=== PATIENT | male | born 1950 | race Hispanic/Latino ===

== ENCOUNTER 2018-08-03 15:44 | Observation (INO) | payer OTHER ==
[2018-08-03 17:24] LABS: Absolute Lymphocytes (CBC) 2.3 K/uL (0.7-4.9); Absolute Monocytes 0.6 K/uL (0.1-1.3); Absolute Neutrophil 6.5 K/uL (1.8-8.0); Basophils % 0.6 % (0-1.3); Eosinophils % 2.2 % (0-4.4); Hematocrit 44.8 % (39.6-49.0); Lymphocytes % 23.7 % (15.3-44.8); MPV 8.8 fL (7.6-11.3); Monocytes % 6.5 % (3.3-12.3)
[2018-08-03 17:34] LABS: Albumin 3.9 g/dL (3.4-5.0); Bilirubin Total 1.5 mg/dL (0.2-1.0); Potassium 3.7 mmol/L (3.5-5.1); Protein, Total 7.8 g/dL (6.4-8.2)
[2018-08-03] MEDS: METRONIDAZOLE 500mg IVPB 500 MG/100 ML BAG IV SCH ×2 (17:39→23:47)
[2018-08-03] MEDS: NACHLORIDE 0.45% 1,000 ML IV SCH (17:40)
[2018-08-03 17:58] VITALS: BMI 33.5
--- NOTE | 2018-08-03 19:29 | RAD REPORT ---
EXAM DESCRIPTION: CTAbdomen Pelvis W Contrast - 08/03/2018 7:19 pm CLINICAL HISTORY: Abdominal pain. acute diverticulities COMPARISON: No comparisons TECHNIQUE: Biphasic CT imaging of the abdomen and pelvis was performed with 100 ml non-ionic IV cont rast. All CT scans are performed using dose optimization technique as appropriate and may include automated exposure control or mA/KV adjustment according to patient size. FINDINGS: The lung bases are clear. The liver, spleen, pancreas, adrenal glands and kidneys are within normal limits. No bowel obstruction, free air, free fluid or abscess. 32 x 12 mm area of epiploic appendagitis is no paulette along the left flank/ left lower quadrant. The appendix is normal. No evidence of significant ly mphadenopathy. No suspicious bony findings. Mild prostatomegaly is present. IMPRESSION: Left lower quadrant epiploic appendagitis.
[2018-08-03] MEDS: CIPROFLOXACIN 400 MG/200 ML IVPB IV SCH (22:08)
[2018-08-03] MEDS ORDERED: ZOLPIDEM TARTRATE 5 MG TABLET PO PRN (22:52)
[2018-08-03 23:09] LABS: Urine Appearance CLEAR; Urine Bilirubin NEGATIVE (NEG); Urine Blood 2+ (NEG); Urine Color YELLOW; Urine Glucose NEGATIVE (NEG); Urine Protein NEGATIVE (NEG); Urine Specific Gravity >=1.030 (1.005-1.030); Urine pH 5.5 (5.0-7.0)
[2018-08-03 23:20] LABS: Urine Microscopic Reflex ORDER UMIC
[2018-08-03 23:38] LABS: Urine Bacteria <20 /HPF (NONE SEEN); Urine Culture Reflex Order NOT NEEDED
[2018-08-03] MEDS: MORPHINE 4 MG/ML SYR IV PRN (23:45)
[2018-08-04] MEDS: NACHLORIDE 0.45% 1,000 ML IV SCH ×2 (00:40→07:20)
[2018-08-04] MEDS: METRONIDAZOLE 500mg IVPB 500 MG/100 ML BAG IV SCH ×3 (05:48→18:03)
[2018-08-04] MEDS: CIPROFLOXACIN 400 MG/200 ML IVPB IV SCH ×2 (08:21→21:00)
[2018-08-04] MEDS: ASPIRIN EC 325 MG TABLET PO SCH (08:41)
[2018-08-04] MEDS: GEMFIBROZIL 600 MG TAB PO SCH (08:41)
[2018-08-04] MEDS: MORPHINE 4 MG/ML SYR IV PRN (14:48)
--- NOTE | 2018-08-04 19:36 | HP ---
Date of Admission: 08/03/2018 Chief Complaint: Left lower quadrant pain. History Of Present Illness: A 68-year-old male was seen in the office with left flank pain. He had outpatient CAT scan done that was suggestive of diverticulitis. The patient was given oral Cipro. H owever, he continued to have pain. At this point, he was brought to the office again with possibilit y of diverticulitis, not responding. The patient was admitted. Subsequently, the patient had a CAT scan with contrast this time, which showed evidence of epiploic appendagitis. Past Medical History: Positive for hyperlipidemia. Family History: History of hyperlipidemia and diabetes present. Personal History: Nonsmoker. Allergies: FLEXERIL. Home Medicines: Lipitor and Tricor. Review of Systems: The patient denied any chest pain or shortness of breath. Physical Examination: General: Revealed a 68-year-old obese male, in moderate pain. Vital Signs: Afebrile. HEENT: Otherwise negative. Neck: Supple. JVD negative. Chest: Clear. Heart: Regular. Abdomen: Tender left lower quadrant with normal bowel sounds. Extremities: No edema. Laboratory Data: White count normal. Assessment: 1.CT scan, evidence of epiploic appendagitis. 2.Hyperlipidemia. Plan: Surgical consultation has been requested and pending bed, patient will be given regular diet a nd if sap portal consultant recommends discharge with pain medication, this will be done. GRIS Voice ID: [id number]
[2018-08-04] MEDS ORDERED: ATORVASTATIN 10 MG TAB PO SCH (21:00)
[2018-08-05] MEDS: METRONIDAZOLE 500mg IVPB 500 MG/100 ML BAG IV SCH ×4 (00:08→17:07)
[2018-08-05] MEDS: ASPIRIN EC 325 MG TABLET PO SCH (09:01)
[2018-08-05] MEDS: GEMFIBROZIL 600 MG TAB PO SCH (09:01)
[2018-08-05] MEDS: CIPROFLOXACIN 400 MG/200 ML IVPB IV SCH (09:01)
[2018-08-05 10:36] VITALS: O2SAT 96
[2018-08-05 17:21] VITALS: BP 150/70; TEMP 97.9
--- NOTE | 2018-08-05 19:10 | CON ---
Date of Consultation: 08/04/2018 Reason For Service: Left lower quadrant abdominal pain. History Of Present Illness: This is the case of a 68-year-old patient comes to us complaining of lef t lower quadrant tenderness. The CAT scan was found to apparently have the diverticulitis, so patirene panda was admitted to the hospital with a surgical consult. The patient apparently was treated before fo r left lower quadrant tenderness, possible diverticulitis, since it was not getting better he decided to come to the ER. He denies any trauma, dysuria, hematochezia, melena. Denies any recent travelli ng out of the country. Denies any family member sick at home. The patient says his colonoscopy have to be more than 6 years ago, he does not remember the details, although he believed it was negative. The patient advised to discuss with the betting clerks his new colonoscopy timing. Review of Systems: Ten points otherwise unremarkable. Past Medical History: Hyperlipidemia. Family History: Diabetes. Social History: He does not smoke. He does not drink alcohol. Allergies: FLEXERIL. Medications: Lipitor and TriCor. Physical Examination: General: The patient is awake and alert. No distress. HEENT: Pupils are equal and reactive, anicteric. Neck: Supple. Chest: Clear. Abdomen: Mild left lower quadrant tenderness with no guarding or rebound. No peritoneal signs. Rectal: Deferred. Extremities: Good capillary refill. Laboratory Data: Blood work shows WBC count of 9.7, hemoglobin of 15.5. Potassium 3.7. CAT scan of abdomen and pelvis, interpreted by Dr. Smith as left lower quadrant epiploic appendagitis. Assessment: This is a 68-year-old patient with left lower quadrant tenderness and CT scan was interp reted as epiploic appendagitis, there is still possibility of diverticulitis, for that reason patient was on antibiotics. I encouraged the patient when he get better and he gets discharged home to [facility] with the betting clerks to do a colonoscopy whenever is appropriate to rule out neoplastic dis ease or diverticular disease. From the surgical standpoint no surgical plans at this moment. ADAM/ALAN Voice ID: [id number] Report ID: [id number]
== END 2018-08-05 18:53 | disposition home or self-care (01) ==
LOC: INTOOBSV 16:05 → 4TH 16:05
PROVIDERS: ADMIT Internal Medicine; ATTEND Internal Medicine
DX: K63.89 Other specified diseases of intestine (principal); E78.5 Hyperlipidemia, unspecified
CPT/HCPCS: 36415; 74177; 80053; 85025; 87040 ×2; G0378; G0379; J0744 ×4; Q9967; 81003; 81015

== ENCOUNTER 2018-08-31 10:38 | Observation (INO) | payer OTHER ==
[2018-08-31 11:56] VITALS: BMI 33.8
[2018-08-31 12:12] LABS: Absolute Lymphocytes (CBC) 2.1 K/uL (0.7-4.9); Absolute Monocytes 0.5 K/uL (0.1-1.3); Absolute Neutrophil 4.9 K/uL (1.8-8.0); Basophils % 0.6 % (0-1.3); Eosinophils % 1.1 % (0-4.4); Hematocrit 44.8 % (39.6-49.0); Lymphocytes % 27.8 % (15.3-44.8); MPV 8.5 fL (7.6-11.3); Monocytes % 6.6 % (3.3-12.3); RBC Red Blood Cell Count 5.05 M/uL (4.33-5.43)
[2018-08-31 12:50] LABS: ALT/SGPT 30 U/L (12-78); AST/SGOT 18 U/L (15-37); Albumin 3.8 g/dL (3.4-5.0); Alkaline Phosphatase 89 U/L (45-117); BUN Blood Urea Nitrogen 18 mg/dL (7-18); Bicarbonate 26 mmol/L (21-32); Bilirubin Total 1.2 mg/dL (0.2-1.0); Glucose Level 97 mg/dL (74-106); Potassium 3.7 mmol/L (3.5-5.1); Protein, Total 7.6 g/dL (6.4-8.2); Sodium Level 139 mmol/L (136-145); Troponin I < 0.02 ng/mL (0.0-0.045)
[2018-08-31] MEDS: TRAMADOL HCL 50 MG TAB PO PRN ×2 (13:55→21:17)
--- NOTE | 2018-08-31 14:00 | EKG ---
Test Date: 2018-08-31 Test Time: 11:41:57 Grounds Caretaker: VELIA MEASUREMENT RESULTS: Intervals: Rate: 53 NC: 176 QRSD: 94 QT: 434 QTc: 407 [place]: P: 54 NC: 176 QRS: 68 T: 57 INTERPRETIVE STATEMENTS: Sinus bradycardia Nonspecific T wave abnormality Abnormal ECG Compared to ECG 12/13/2016 06:41:06 T-wave abnormality now present Electronically Signed On 08-31-18 14:00:01 MANAGER AGRICULTURE by Damon Jerry
--- NOTE | 2018-08-31 14:12 | ECHO ---
HEIGHT: 5 ft 11.5 in WEIGHT: 246 lb 0 oz DATE OF STUDY: 08/31/[address]: Isaac Gonzalez MD 2-DIMENSIONAL: YES M.MODE: YES DOPPLER: YES COLOR FLOW: YES TDS: NO PORTABLE: NO DEFINITY: NO BUBBLE STUDY: NO DIAGNOSIS: CHEST PAIN CARDIAC HISTORY: CATHERIZATION: NO SURGERY: NO PROSTHETIC VALVE: NO PACEMAKER: NO MEASUREMENTS (cm) DIASTOLIC (NORMALS) SYSTOLIC (NORMALS) IVSd 1.2 (0.6-1.2) LA Diam 3.8 (1.9-4.0) LVEF 65% LVIDd 4.2 (3.5-5.7) LVIDs 2.7 (2.0-3.5) %FS 36% LVPWd 1.2 (0.6-1.2) Ao Diam 3.0 (2.0-3.7) 2 DIMENSIONAL ASSESSMENT: RIGHT ATRIUM: NORMAL LEFT ATRIUM: NORMAL RIGHT VENTRICLE: NORMAL LEFT VENTRICLE: NORMAL TRICUSPID VALVE: NORMAL MITRAL VALVE: NORMAL PULMONIC VALVE: NORMAL AORTIC VALVE: NORMAL PERICARDIAL EFFUSION: NONE AORTIC ROOT: NORMAL LEFT VENTRICULAR WALL MOTION: NORMAL DOPPLER/COLOR FLOW: MILD TRICUSPID REGURGITATION. NORMAL RIGHT VENTRICULAR SYSTOLIC PRESSURE. COMMENTS: NORMAL 2D ECHOCARDIOGRAM. MILD TRICUSPID REGURGITATION. TECHNOLOGIST: Pat KOVACS
[2018-08-31 14:32] LABS: Urine Appearance CLEAR; Urine Bilirubin NEGATIVE (NEG); Urine Blood NEGATIVE (NEG); Urine Color YELLOW; Urine Glucose NEGATIVE (NEG); Urine Protein NEGATIVE (NEG); Urine Urobilinogen 0.2 mg/dL (0.2-1.0)
--- NOTE | 2018-08-31 14:48 | RAD REPORT ---
EXAM DESCRIPTION: CT - Thorax W/ Con CLINICAL HISTORY: Chest pain Chest Pain COMPARISON: Chest W Obliques dated 08/30/2018; Chest Pa And Lat (2 Views) dated 08/30/2018 FINDINGS: Mild linear subsegmental atelectasis or scarring is present in the left upper lobe lateral ly. No focal infiltrate is seen. No pulmonary nodule or mass. No pleural thickening or pleural effusi on. No pneumothorax. No axillary, mediastinal or hilar adenopathy. No concerning bony finding. Small nodule is seen in the right adrenal gland measuring [address] scans are performed using dose optimization technique as appropriate and may include automated exposure control or mA/KV adjustment according to patient size. IMPRESSION: No acute or aggressive intrathoracic abnormality.
[2018-08-31 15:18] LABS: Urine Bacteria NONE SEEN /HPF (NONE SEEN); Urine RBC NONE SEEN /HPF (NONE SEEN)
[2018-08-31 15:19] LABS: Urine Culture Reflex Order NOT NEEDED
--- NOTE | 2018-09-01 03:49 | HP ---
Date of Admission: 08/31/2018 Chief Complaint: Left chest pain. History Of Present Illness: A 68-year-old male who was seen in the office yesterday for chest pain, who had outpatient workup, was brought back to the office today because of continued chest pain. The patient had no fever, chills, rigors, nausea, vomiting. Past Medical History: Positive for hyperlipidemia, hypertension. Family History: History of chronic kidney disease, hypertension, diabetes present. Personal History: Nonsmoker. Home Medicines: Please refer to the chart. Review of Systems: No fever, chills, or rigors. Allergies: FLEXERIL. Physical Examination: General: Revealed 68-year-old male, in [id number] pain. HEENT: Negative. Neck: Supple. JVD negative. Chest: Clear. Heart: Regular. Abdomen: Soft. Extremities: No edema. Laboratory Data: White count normal. Chem profile normal. Troponin negative. EKG, nonspecific ST changes. CAT scan of the chest, no evidence of PE. Assessment: 1.Chest pain. 2.Hyperlipidemia. 3.Hypertension. Plan: The patient will be scheduled for stress test in the a.m. MACIEJ/ALAN Voice ID: [id number]
[2018-09-01] MEDS ORDERED: HOME MED 1 EA UNK (Aspirin [Aspirin Ec 325 Mg] 325 MG) PO SCH (09:00)
[2018-09-01] MEDS ORDERED: GEMFIBROZIL 600 MG TAB PO SCH (09:00)
[2018-09-01] MEDS ORDERED: IRBESARTAN 150 MG TAB PO SCH (09:00)
[2018-09-01] MEDS ORDERED: ASPIRIN EC 325 MG TABLET PO SCH (09:00)
[2018-09-01] MEDS ORDERED: ATORVASTATIN 10 MG TAB PO SCH (09:00)
[2018-09-01] MEDS ORDERED: REGADENOSON 0.4 MG/5 ML SYR IV ONE (09:08)
--- NOTE | 2018-09-01 10:14 | RAD REPORT ---
EXAM DESCRIPTION: NM - Rest Stress Cardiac Imaging - 09/01/2018 10:05 am CLINICAL HISTORY: Chest pain COMPARISON: December 2016 TECHNIQUE: The patient was administered approximately 10 mCi of Tc 99m Sestamibi prior to resting SP ECT imaging of the heart. The patient was then administered approximately 30 mCi of Tc 99m Sestamibi following exercise or pharmacologic stress. Multiplanar SPECT images were reviewed. FINDINGS: The end diastolic volume is 105 ml, the end systolic volume is 39 ml, and the ejection fra ction is 63 %. Volumes and ejection fraction are similar to the comparison. No stress-induced ischemic changes are identifiable. Moderate area of fixed perfusion abnormalities s een along the inferior wall. This is similar to the prior study. This could be attenuation artifact, scarring or a combination. No new finding seen. IMPRESSION: No stress-induced ischemia. Inferior wall fixed defect is stable from December 2016. This could be scarring, attenuation artifact or a combination. Ventricular volumes and ejection fraction are normal range and similar to December 2016.
--- NOTE | 2018-09-01 12:24 | RAD REPORT ---
EXAM DESCRIPTION: CT - Abdomen Pelvis Wo Contrast - 09/01/2018 11:37 am CLINICAL HISTORY: Abdominal pain left flank pain COMPARISON: July 2018 TECHNIQUE: Computed axial tomography of the abdomen and pelvis was obtained. IV and oral contrast we re not requested. All CT scans are performed using dose optimization technique as appropriate and may include automated exposure control or mA/KV adjustment according to patient size. FINDINGS: The evaluation of solid organs, vessels and bowel is limited secondary to the lack of con trast administration. The liver, spleen, pancreas, adrenals and kidneys appear grossly normal. The appendix is normal. There is no evidence of diverticulitis. The stranding within the fat adjacent to the distal descending colon has diminished. The prostate gland is moderately to markedly enlarged. IMPRESSION: The inflammation associated with epiploic appendagitis has diminished since the prior e xam.
--- NOTE | 2018-09-01 13:56 | TREADPHA ---
DX: CHEST PAIN Date of Study: 09/01/18 Ht: 5 11.5 Wt: 246 lb 0 oz Consulting Physician: JANETH MEDICATIONS: ECOTRIN, LIPITOR, AVAPRO, ULTRAM, LOPID HISTORY: 68 YEAR OLD MALE WITH CHEST PAIN, HISTORY OF CEREBRAL VASCULAR ACCIDENT, HYPERTENSION, HYPERLIPIDEMIA. PHYSICIAL EXAMINATION: RESTING B.P.: 166/82 RESTING H.R.: 55 RESTING EKG: SINUS BRADYCARDIA OTHERWISE NEGATIVE PROTOCOL: LEXISCAN EXERCISE TIME: 3:30 B.P. AT PEAK STRESS: 160/75 IMPRESSION: LEXISCAN INJECTED, FOLLOWED BY CARDIOLITE PER PROTOCOL, SEE NUCLEAR MEDICINE REPORT. NO SUPRA VENTRICULAR TACHYCARDIA. NO VENTRICULAR TACHYCARDIA, NO PREMATURE ATRIAL COMPLEXES. ONE PREMATURE VENTRICULAR COMPLEX DURING RECOVERY. PATIENT REPORTED 0/10 CHEST PAIN, OR TIGHTNESS THROUGHOUT PROCEDURE.
[2018-09-01 17:30] VITALS: BP 130/73; TEMP 98
[2018-09-01 17:44] VITALS: O2SAT 96
== END 2018-09-01 17:47 | disposition home or self-care (01) ==
LOC: 4TH 10:57
PROVIDERS: ADMIT Internal Medicine; ATTEND Internal Medicine
DX: R07.9 Chest pain, unspecified (principal); I10 Essential (primary) hypertension; E78.5 Hyperlipidemia, unspecified
CPT/HCPCS: 36415; 71260; 74176; 78452; 80053; 81001; 84484; 85025; 85652; 93005; 93017; 93306; A9500; G0378; G0379; J2785; Q9967

== ENCOUNTER 2018-10-02 10:39 | Emergency (ER) | payer OTHER ==
[2018-10-02 11:54] LABS: Absolute Lymphocytes (CBC) 1.7 K/uL (0.7-4.9); Absolute Monocytes 0.4 K/uL (0.1-1.3); Absolute Neutrophil 6.8 K/uL (1.8-8.0); Basophils % 0.7 % (0-1.3); Eosinophils % 0.4 % (0-4.4); Hematocrit 46.1 % (39.6-49.0); Lymphocytes % 19.2 % (15.3-44.8); MPV 8.4 fL (7.6-11.3); Monocytes % 4.5 % (3.3-12.3); RBC Red Blood Cell Count 5.18 M/uL (4.33-5.43)
[2018-10-02 12:09] LABS: Urine Blood 3+ (NEG); Urine Glucose 1+ (NEG); Urine Protein 1+ (NEG); Urine Specific Gravity 1.015 (1.005-1.030)
[2018-10-02 12:15] LABS: Albumin 4.1 g/dL (3.4-5.0); Bilirubin Direct 0.2 mg/dL (0-0.2); Potassium 4.1 mmol/L (3.5-5.1)
--- NOTE | 2018-10-02 13:12 | RAD REPORT ---
EXAM DESCRIPTION: CT - Abdomen Pelvis W Contrast - 10/02/2018 12:46 pm CLINICAL HISTORY: Abdominal pain with hematuria COMPARISON: August 2018 TECHNIQUE: Computed axial tomography of the abdomen pelvis was obtained. 100 cc Isovue-300 was admin istered intravenously. Oral contrast was not requested which limits evaluation of bowel. All CT scans are performed using dose optimization technique as appropriate and may include automated exposure control or mA/KV adjustment according to patient size. FINDINGS: Mild fatty liver Spleen, pancreas, and adrenals appear unremarkable. Small renal cysts are present There is no evidence of diverticulitis. The appendix is normal. The prostate gland is markedly enlarged. A TURP has been performed The stranding within the fat adjacent to the left colon has mostly resolved Spondylosis lumbar spine results in spinal stenosis. Spondylolysis L4 Small right femoral calcification unchanged IMPRESSION: Marked prostatic hypertrophy The stranding within the fat associated with previously described epiploic appendagitis has mostly re solved
--- NOTE | 2018-10-02 14:28 | EDPHYS ---
Physician Documentation [facility] Name: Yobany Harris Jr Age: 68 yrs Sex: Male : 1950 Arrival Date: 10/02/2018 Time: 10:41 Bed 14 Private MD: Isaac Gonzalez R ED Physician Roger Roth HPI: 10/02 11:26 This 68 yrs old Male presents to ER via Ambulatory with complaints of Blood In jmm Urine. 11:26 The patient presents with urinary symptoms, dysuria. Onset: The symptoms/episode jmm began/occurred this morning. Modifying factors: The symptoms are alleviated by nothing, the symptoms are aggravated by nothing. This is a 68 year old male with a history of CAD, CVA, HLP, HTN that presents to the ED with complaints of hematuria with clots beginning this morning. Patient states he used a qtip to clear clots. Denies fever, denies abdominal pain. . Historical: - Allergies: 10:58 cyclobenzaprine HCl; la1 - PMHx: 10:58 CAD; CVA; Hyperlipidemia; Hypertension; la1 - Immunization history:: Adult Immunizations up to date. - Social history:: Smoking status: Patient/guardian denies using tobacco. - Ebola Screening: : No symptoms or risks identified at this time. ROS: 11:26 Constitutional: Negative for fever, chills, and weight loss, Cardiovascular: Negative jmm for chest pain, palpitations, and edema, Respiratory: Negative for shortness of breath, cough, wheezing, and pleuritic chest pain, Abdomen/GI: Negative for abdominal pain, nausea, vomiting, diarrhea, and constipation. 11:26 : Positive for urinary symptoms, hematuria. 11:26 All other systems are negative. Exam: 11:26 Constitutional: This is a well developed, well nourished patient who is awake, alert, jmm and in no acute distress. Head/Face: atraumatic. Eyes: EOMI, no conjunctival erythema appreciated ENT: Moist Mucus Membranes Neck: Trachea midline, Supple Chest/axilla: Normal chest wall appearance and motion. Cardiovascular: Regular rate and rhythm. No edema appreciated Respiratory: Normal respirations, no respiratory distress appreciated 11:26 Abdomen/GI: Inspection: abdomen appears normal, Bowel sounds: normal, Palpation: abdomen is soft and non-tender, in all quadrants. 11:26 Back: CVA tenderness, is absent, is noted bilaterally. 11:26 : CVA tenderness, is absent. 11:26 Musculoskeletal/extremity: ROM: intact in all extremities. 11:26 Skin: Appearance: Color: normal in color. 11:26 Neuro: Orientation: is normal, Mentation: is normal, Memory: is normal, Gait: is steady. 11:26 Psych: Behavior/mood is pleasant, cooperative. Vital Signs: 10:55 BP 146 / 89; Pulse 77; Resp 18; Temp 97.5; Pulse Ox 98% on R/A; Weight 108.86 kg; la1 Height 5 ft. 11 in. (180.34 cm); 11:50 BP 135 / 66; Pulse 63; Resp 16 S; Pulse Ox 97% on R/A; jl7 13:54 BP 140 / 92; Pulse 63; Resp 18; Temp 98.0(O); Pulse Ox 98% on R/A; mh5 14:30 BP 135 / 88; Pulse 65; Resp 16; Pulse Ox 98% ; jl7 10:55 Body Mass Index 33.47 (108.86 kg, 180.34 cm) la1 MDM: 11:26 Patient medically screened. [facility] 14:26 Data reviewed: vital signs, nurses notes, lab test result(s), radiologic studies, CT [facility] scan. Counseling: I had a detailed discussion with the patient and/or guardian regarding: the historical points, exam findings, and any diagnostic results supporting the discharge/admit diagnosis, lab results, radiology results, the need for outpatient follow up, to return to the emergency department if symptoms worsen or persist or if there are any questions or concerns that arise at home. ED course: Abdomen is soft and non tender to palpation, ct shows no acute process. patient was able to urinate in the ED without hipolito blood. patient advised of the need to follow up with Dr. Zimmer for further evaluation for bladder cancer. patient given return precautions. patient understood and agrees with Plan of care. . 10/02 11:33 Order name: Basic Metabolic Panel; Complete Time: 12:32 [facility] 10/02 11:33 Order name: CBC with Diff [facility] 10/02 11:33 Order name: Creatinine for Radiology; Complete Time: 12:32 [facility] 10/02 11:33 Order name: Hepatic Function; Complete Time: 12:32 [facility] 10/02 11:33 Order name: Lipase; Complete Time: 12:32 [facility] 10/02 11:49 Order name: Urine Dipstick--Ancillary (enter results); Complete Time: 12:32 ms 10/02 11:33 Order name: IV Saline Lock; Complete Time: 11:49 [facility] 10/02 11:33 Order name: Labs collected and sent; Complete Time: 11:49 [facility] 10/02 11:33 Order name: CT Abd/Pelvis - W/Contrast; Complete Time: 13:31 [facility] Administered Medications: No medications were administered Disposition: 17:39 Co-signature as Attending Physician, Roger Roth MD. Disposition: 10/02/18 14:28 Discharged to Home. Impression: Hematuria, unspecified. - Condition is Stable. - Discharge Instructions: Hematuria, Adult. - Medication Reconciliation Form, Thank You Letter, Antibiotic Education, Prescription Opioid Use form. - Follow up: Madi Zimmer MD; When: 2 - 3 days; Reason: Recheck today's complaints, Continuance of care, Re-evaluation by your physician. Signatures: Dispatcher [employer] EDMS Carlos Enriquez PA PA [facility] Jamie Frazier RN RN la1 Lobito Morales RN RN jl7 Roger Roth MD MD Corrections: (The following items were deleted from the chart) 14:41 14:28 10/02/2018 14:28 Discharged to Home. Impression: Hematuria, unspecified. jl7 Condition is Stable. Forms are Medication Reconciliation Form, Thank You Letter, Antibiotic Education, Prescription Opioid Use. Follow up: Madi Zimmer; When: 2 - 3 days; Reason: Recheck today's complaints, Continuance of care, Re-evaluation by your physician. [facility]
--- NOTE | 2018-10-02 14:28 | ER ---
Nurse's Notes [facility] Name: Yobany Harris Jr Age: 68 yrs Sex: Male : 1950 Arrival Date: 10/02/2018 Time: 10:41 Bed 14 Private MD: Isaac Gonzalez R Diagnosis: Hematuria, unspecified Presentation: 10/02 10:54 Presenting complaint: Patient states: Yesterday evening I began peeing bright red la1 blood, I am passing clots and they are starting to get stuck. I had a TURP last year I cath myself every Wednesday everything is open. Transition of care: patient was not received from another setting of care. Onset of symptoms was October 02, 2018. Risk Assessment: Do you want to hurt yourself or someone else? Patient reports no desire to harm self or others. Initial Sepsis Screen: Does the patient meet any 2 criteria? No. Patient's initial sepsis screen is negative. Does the patient have a suspected source of infection? No. Patient's initial sepsis screen is negative. Care prior to arrival: None. 10:54 Method Of Arrival: Ambulatory la1 10:54 Acuity: BLIL 3 la1 Historical: - Allergies: 10:58 cyclobenzaprine HCl; la1 - PMHx: 10:58 CAD; CVA; Hyperlipidemia; Hypertension; la1 - Immunization history:: Adult Immunizations up to date. - Social history:: Smoking status: Patient/guardian denies using tobacco. - Ebola Screening: : No symptoms or risks identified at this time. Screenin:50 Abuse screen: Denies threats or abuse. Denies injuries from another. Nutritional jl7 screening: No deficits noted. Tuberculosis screening: No symptoms or risk factors identified. Fall Risk IV access (20 points). Total Thorne Fall Scale indicates No Risk (0-24 pts). Assessment: 11:50 General: Appears in no apparent distress. uncomfortable, Behavior is calm, cooperative, jl7 appropriate for age. Pain: Denies pain. Neuro: Level of Consciousness is awake, alert, obeys commands, Oriented to person, place, time, situation. Cardiovascular: Patient's skin is warm and dry. Respiratory: Airway is patent Respiratory effort is even, unlabored, Respiratory pattern is regular, symmetrical. GI: No signs and/or symptoms were reported involving the gastrointestinal system. : Urine is blood tinged, Reports blood in urine. EENT: No signs and/or symptoms were reported regarding the EENT system. Derm: Skin is pink, warm \T\ dry. Musculoskeletal: No signs and/or symptoms reported regarding the musculoskeletal system. 13:00 Reassessment: Patient appears in no apparent distress at this time. No changes from jl7 previously documented assessment. Patient and/or family updated on plan of care and expected duration. Pain level reassessed. Patient is alert, oriented x 3, equal unlabored respirations, skin warm/dry/pink. 14:00 Reassessment: Patient appears in no apparent distress at this time. Patient and/or jl7 family updated on plan of care and expected duration. Pain level reassessed. Patient is alert, oriented x 3, equal unlabored respirations, skin warm/dry/pink. Vital Signs: 10:55 BP 146 / 89; Pulse 77; Resp 18; Temp 97.5; Pulse Ox 98% on R/A; Weight 108.86 kg; la1 Height 5 ft. 11 in. (180.34 cm); 11:50 BP 135 / 66; Pulse 63; Resp 16 S; Pulse Ox 97% on R/A; jl7 13:54 BP 140 / 92; Pulse 63; Resp 18; Temp 98.0(O); Pulse Ox 98% on R/A; mh5 14:30 BP 135 / 88; Pulse 65; Resp 16; Pulse Ox 98% ; jl7 10:55 Body Mass Index 33.47 (108.86 kg, 180.34 cm) la1 ED Course: 10:41 Patient arrived in ED. rg4 10:41 Isaac Gonzalez MD is Private Physician. rg4 10:55 Triage completed. la1 10:55 Arm band placed on left wrist. la1 11:20 Lobito Morales RN is Primary Nurse. jl7 11:26 Carlos Enriquez PA is PHCP. jmm 11:26 Rgoer Roth MD is Attending Physician. jmm 11:46 Radiology exam delayed due to lab results not completed at this time. (BUN/Creatinine). kw1 11:50 Patient has correct armband on for positive identification. Bed in low position. Call jl7 light in reach. Side rails up X 1. Pulse ox on. NIBP on. 11:50 Initial lab(s) drawn, by me, sent to lab. Urine collected: clean catch specimen, blood jl7 tinged. Inserted saline lock: 20 gauge in right antecubital area, using aseptic technique. Blood collected. 12:46 CT completed. Patient tolerated procedure well. Patient moved back from CT. kw1 12:46 CT Abd/Pelvis - W/Contrast In Process Unspecified. EDMS 14:28 Madi Zimmer MD is Referral Physician. [facility] 14:41 No provider procedures requiring assistance completed. IV discontinued, intact, jl7 bleeding controlled, No redness/swelling at site. Pressure dressing applied. Administered Medications: No medications were administered Outcome: 14:28 Discharge ordered by . josesito 14:41 Discharged to home ambulatory, with family. jlErica 14:41 Condition: good 14:41 Discharge instructions given to patient, family, Instructed on discharge instructions, follow up and referral plans. Demonstrated understanding of instructions, follow-up care. 14:41 Patient left the ED. [email or web address] Signatures: Dispatcher [employer] EDMS Carlos Enriquez PA PA jmm Attema, Lee, RN RN Danay Love Maria mh5 Leal, Jahala, RN RN jl7 Aneta Jones kw1
[2018-10-02 15:16] VITALS: TEMP 98; O2SAT 98
[2018-10-02 15:17] VITALS: BP 135/88
== END 2018-10-02 14:41 | disposition home or self-care (01) ==
LOC: ER 10:39
DX: R31.9 Hematuria, unspecified (principal); I10 Essential (primary) hypertension; E78.5 Hyperlipidemia, unspecified; Z88.8 Allergy status to other drugs, medicaments and biological substances
CPT/HCPCS: 36415; 74177; 80048; 80076; 81003; 83690; 85025; Q9967; 99284

== ENCOUNTER 2018-11-08 08:21 | Day surgery (SDC) | payer OTHER ==
--- NOTE | 2018-11-03 14:46 | RAD REPORT ---
EXAM DESCRIPTION: RAD - Chest Pa And Lat (2 Views) - 11/03/2018 2:40 pm CLINICAL HISTORY: preop Chest pain. COMPARISON: Chest Pa And Lat (2 Views) dated 08/30/2018; Chest Single View dated 12/12/2016; CHEST PA AND LAT 2 VIEW dated 10/01/2015; CHEST PA AND LAT 2 VIEW dated 04/14/2013 FINDINGS: The lungs are clear. The heart is normal in size. Mildly tortuous thoracic aorta noted. No displaced fractures. Thoracic spine anterior osteophytosis. IMPRESSION: No acute or concerning finding suspected.
[2018-11-03 15:03] LABS: Absolute Lymphocytes (CBC) 2.3 K/uL (0.7-4.9); Absolute Monocytes 0.4 K/uL (0.1-1.3); Absolute Neutrophil 5.2 K/uL (1.8-8.0); Basophils % 0.5 % (0-1.3); Eosinophils % 1.6 % (0-4.4); Hematocrit 43.7 % (39.6-49.0); Lymphocytes % 28.1 % (15.3-44.8); MPV 8.4 fL (7.6-11.3); Monocytes % 4.6 % (3.3-12.3); Potassium 3.8 mmol/L (3.5-5.1)
[2018-11-03 15:08] LABS: Protime INR 1.17
[2018-11-03 15:12] LABS: Urine Appearance CLEAR; Urine Bilirubin NEGATIVE (NEG); Urine Blood 2+ (NEG); Urine Color YELLOW; Urine Glucose NEGATIVE (NEG); Urine Protein NEGATIVE (NEG); Urine Urobilinogen 0.2 mg/dL (0.2-1.0)
[2018-11-03 15:16] LABS: Urine Microscopic Reflex ORDER UMIC
[2018-11-03 15:33] LABS: Urine Bacteria <20 /HPF (NONE SEEN); Urine RBC <5 /HPF (NONE SEEN)
[2018-11-03 15:34] LABS: Urine Culture Reflex Order NOT NEEDED; Urine Yeast PRESENT (NONE SEEN)
--- NOTE | 2018-11-03 17:07 | EKG ---
Test Date: 2018-11-03 Test Time: 14:27:31 Animal Care Specialist: TOAN MEASUREMENT RESULTS: Intervals: Rate: 59 RI: 174 QRSD: 86 QT: 416 QTc: 411 [place]: P: 42 RI: 174 QRS: 66 T: 47 INTERPRETIVE STATEMENTS: Sinus bradycardia Possible Left atrial enlargement Nonspecific T wave abnormality Abnormal ECG Compared to ECG 08/31/2018 11:41:57 No significant changes Electronically Signed On 11-03-18 17:06:28 CDT by Damon Jerry
[2018-11-08] MEDS ORDERED: Ringers Lactate 1,000 ML IV ONE ×2 (08:38→11:48)
[2018-11-08] MEDS ORDERED: GENTAMICIN 80 MG/100 ML BAG 80 MG/100 ML BAG IV ONE (08:38)
[2018-11-08] MEDS ORDERED: FENTANYL CITR 100 MCG/2 ML ONE (08:58)
[2018-11-08] MEDS ORDERED: MIDAZOLAM HCL 2 MG/2 ML INJ ONE (08:59)
[2018-11-08] MEDS ORDERED: LIDOCAINE 2% MPF 5 ML VIAL ONE (08:59)
[2018-11-08] MEDS ORDERED: ONDANSETRON 4 MG/2 ML VIAL ONE (08:59)
[2018-11-08] MEDS ORDERED: PROPOFOL 200 MG/20 ML VIAL IV ONE ×3 (08:59→10:13)
[2018-11-08] MEDS ORDERED: LIDOCAINE 1% MPF 5 ML VIAL ONE (10:13)
[2018-11-08] MEDS ORDERED: EPHEDRINE SULF 50 MG/ML VIAL ONE (11:05)
[2018-11-08] MEDS ORDERED: HYDROMORPHONE HCL 1 MG/ML INJ ONE (11:53)
[2018-11-08] MEDS ORDERED: OXYBUTYNIN CHLORIDE 5 MG TAB ONE (12:54)
[2018-11-08] MEDS ORDERED: HYDROCODONE/APAP 7.5/325 MG TAB ONE (12:55)
[2018-11-08 14:09] VITALS: BP 157/72; TEMP 97.3; O2SAT 97
--- NOTE | 2018-11-11 21:03 | ENDO RPT ---
[address], [address] COLONOSCOPY PROCEDURE REPORT EXAM DATE: 11/08/2018 PATIENT NAME: Yobany Harris MR #: [id number] BIRTHDATE: 1950 ATTENDING: Shar Obregon M.D. STATUS: outpatient PIPELINE SUPERINTENDENT: INDICATIONS: The patient is a 68 yr old Male here for a colonoscopy due to colon cancer screening PROCEDURE PERFORMED: Screening Colonoscopy MEDICATIONS: Per Anesthesia. ESTIMATED BLOOD LOSS: None CONSENT: The patient understands the risks and benefits of the procedure and understands that these risks include, but are not limited to: sedation, allergic reaction, infection, perforation and/or bleeding. Alternative means of evaluation and treatment include, among others: physical exam, x-rays, and/or surgical intervention. The patient elects to proceed with this endoscopic procedure. DESCRIPTION OF PROCEDURE: During intra-op preparation period all mechanical medical equipment was checked for proper function. Hand hygiene and appropriate measures for infection prevention was taken. Procedure, possible complications, alternatives including, but not limited to possibility of bleeding, perforation, tear, infection, sepsis, need for surgery, need for blood transfusion, were explained to the patient. After the risks, benefits and alternatives of the procedure were thoroughly explained, Informed consent was verified, confirmed and timeout was successfully executed by the treatment team. The patient was placed in the left lateral position. A digital rectal exam was performed and revealed no abnormalities of the rectum and A digital rectal exam was performed and revealed an enlarged prostate. After appropriate level of anesthesia, the scope was passed. The EC-[id number] ([id number]) endoscope was introduced through the anus and advanced to the cecum, which was identified by transillumination from the light source. The quality of the prep was good. The instrument was then slowly withdrawn as the colon was fully examined. Scope withdrawal time was 11 minutes. COLON FINDINGS: A normal appearing cecum, ileocecal valve, and appendiceal orifice were identified. the ascending, transverse, descending, sigmoid colon, and rectum appeared unremarkable. Retroflexed views revealed no abnormalities. The scope was then completely withdrawn from the patient and the procedure terminated. ADVERSE EVENTS: There were no complications. IMPRESSIONS: A normal appearing cecum, ileocecal valve, and appendiceal orifice were identified. the ascending, transverse, descending, sigmoid colon, and rectum appeared unremarkable RECOMMENDATIONS: 1. follow-up: office 1 week(s) 2. Metamucil 3. increase dietary water RECALL: Return in 10 year(s) for Colonoscopy. Shar Obregon M.D. eSigned: Shar Obregon M.D. 11/08/2018 10:22 AM cc: Mili Corral M.D. CPT CODES: ICD9 CODES: 600.0 Hypertrophy (benign) of prostate PATIENT NAME: Yobany Harris MR#: [id number]
== END 2018-11-08 14:01 | disposition home or self-care (01) ==
LOC: OR 08:21
PROVIDERS: ATTEND Urology
PROC: 0VT08ZZ Resection of Prostate, Via Natural or Artificial Opening Endoscopic (ICD-10-PCS; principal; 2018-11-08 09:00)
PROC: 0DJD8ZZ Inspection of Lower Intestinal Tract, Via Natural or Artificial Opening Endoscopic (ICD-10-PCS; 2018-11-08 10:00)
DX: N40.1 Benign prostatic hyperplasia with lower urinary tract symptoms (principal); Z12.11 Encounter for screening for malignant neoplasm of colon; N35.919 Unspecified urethral stricture, male, unspecified site; R39.12 Poor urinary stream; N42.9 Disorder of prostate, unspecified; Z86.73 Personal history of transient ischemic attack (TIA), and cerebral infarction without residual deficits; Z88.8 Allergy status to other drugs, medicaments and biological substances; Z80.42 Family history of malignant neoplasm of prostate; Z83.3 Family history of diabetes mellitus
CPT/HCPCS: 93005; 87088; 85025; 80048; 36415; 85610; 88305; 85730; 71046; 52601; J2704 ×3; J2250; J3010; J1170; J1580; J2405; G0121; 81003; 81015; 87086

== ENCOUNTER 2019-08-30 06:47 | Day surgery (SDC) | payer OTHER ==
--- NOTE | 2019-08-29 15:09 | RAD REPORT ---
EXAM DESCRIPTION: RAD - Chest Pa And Lat (2 Views) - 08/29/2019 3:00 pm CLINICAL HISTORY: preop Chest pain. COMPARISON: Chest Pa And Lat (2 Views) dated 11/03/2018; Chest Pa And Lat (2 Views) dated 08/30/2018; Chest Single View dated 12/12/2016; CHEST PA AND LAT 2 VIEW dated 10/01/2015; Chest W Obliques dated FINDINGS: The lungs appear mildly emphysematous with a small area of nodularity in the left lung bas e similar in appearance to prior studies. The heart is normal in size. No displaced fractures. IMPRESSION: Mild COPD.
[2019-08-29 15:40] LABS: Absolute Lymphocytes (CBC) 2.2 K/uL (0.7-4.9); Basophils % 0.4 % (0-1.3); Hematocrit 47.4 % (39.6-49.0); Lymphocytes % 25.5 % (15.3-44.8); MPV 8.8 fL (7.6-11.3); RBC Red Blood Cell Count 5.35 M/uL (4.33-5.43)
[2019-08-29 15:46] LABS: Potassium 3.8 mmol/L (3.5-5.1)
--- NOTE | 2019-08-29 20:53 | EKG ---
Test Date: 2019-08-29 Test Time: 14:39:27 Brake Repairer: TOAN MEASUREMENT RESULTS: Intervals: Rate: 62 NH: 164 QRSD: 86 QT: 392 QTc: 397 D Hanis: P: 48 NH: 164 QRS: 58 T: 54 INTERPRETIVE STATEMENTS: Normal sinus rhythm Possible Left atrial enlargement Nonspecific T wave abnormality Abnormal ECG Compared to ECG 11/03/2018 14:27:31 Sinus bradycardia no longer present T-wave abnormality still present Electronically Signed On 08-29-19 20:52:59 TIMBER BUCKER by Jose Craig
[2019-08-30] MEDS ORDERED: CEFAZOLIN/SWI 1gm 1 GM/10 ML SYR ONE (07:07)
[2019-08-30] MEDS: Ringers Lactate 1,000 ML IV ONE (07:42)
[2019-08-30] MEDS ORDERED: MIDAZOLAM HCL 2 MG/2 ML INJ ONE (08:41)
[2019-08-30] MEDS ORDERED: LIDOCAINE 1% MPF 5 ML VIAL ONE (08:41)
[2019-08-30] MEDS ORDERED: propofoL 200 MG/20 ML VIAL IV ONE (08:41)
[2019-08-30] MEDS ORDERED: FENTANYL CITR 100 MCG/2 ML ONE (08:41)
[2019-08-30] MEDS ORDERED: ROCURONIUM 50 MG/5 ML VIAL IV ONE (08:42)
[2019-08-30] MEDS ORDERED: GLYCOPYRROLATE 0.2 MG/ML SYR ONE ×2 (09:35→09:46)
[2019-08-30] MEDS ORDERED: KETOROLAC 30 MG/ML INJ ONE (09:36)
[2019-08-30] MEDS ORDERED: ONDANSETRON 4 MG/2 ML VIAL ONE (09:39)
[2019-08-30] MEDS ORDERED: NEOSTIGMINE 1 MG/ML -5 ML ONE (09:39)
--- NOTE | 2019-08-30 09:43 | P.BOP ---
Preoperative diagnosis: incarcerated right inguinal hernia Postoperative diagnosis: same Primary procedure: laparoscopic repair of incarcerated right inguinal hernia Gasser Machine Operator: TABITHA SOTO (INTERNAL COMBUSTION ENGINEER) Estimated blood loss: <10cc Specimen: none Findings: incarcerated fat Anesthesia: General Complications: None Transferred to: Recovery Room Condition: Good
[2019-08-30] MEDS ORDERED: PROMETHAZINE INJ 25 MG/ML AMP ONE (10:22)
[2019-08-30] MEDS: HYDROMORPHONE HCL 1 MG/ML INJ ONE ×2 (10:25→10:30)
[2019-08-30] MEDS ORDERED: HYDROCODONE/APAP 5/325 MG TAB ONE (11:42)
[2019-08-30] MEDS ORDERED: Ringers Lactate 1,000 ML IV ONE (12:18)
[2019-08-30 14:57] VITALS: BP 173/79; TEMP 96.8; O2SAT 98
--- NOTE | 2019-08-30 21:56 | DS ---
Date of Discharge: 08/30/2019 Diagnosis: Incarcerated tender right inguinal hernia. Procedure: Laparoscopic repair of tender incarcerated right inguinal hernia with mesh. Disposition: Home. Activity: As tolerated. No heavy lifting. Followup: Follow up in my office in 1 week. Call for appointment at [phone]. Keep area dry for 48 hours, then may shower. Keep Steri-Strips intact. Medications: See orders. ADAM/MODNathalia Voice ID: [id number] Report ID: [id number]
--- NOTE | 2019-08-30 21:56 | OP ---
Date of Procedure: 08/30/2019 Surgeon: Nikunj Xiao MD Associate Director Financial Aid: Debora Maravilla. Preoperative Diagnosis: Incarcerated right inguinal hernia. Postoperative Diagnosis: Incarcerated right inguinal hernia. Procedure: Laparoscopic repair of incarcerated tender right inguinal hernia with mesh. Estimated Blood Loss: Less than 10 mL. Specimen: None. Findings: Incarcerated fat. Anesthesia: General plus local. Indications: This is a case of a 69-year-old patient, who comes to us with incarcerated inguinal her andrez with tenderness. Benefits, alternatives, and risks of repair with laparoscopic, possible open wi th mesh were fully explained, which included, but are not limited to infection, bleeding, damage to a djacent structures, anesthesia complication, abdominal pain, urinary retention, RI, even . Anita ent was explained the risk of mesh placement, pros and cons of it. They were allowed to ask question s. They were answered to his satisfaction and he consented for mesh use. Description Of Procedure: Patient was brought to the operating room, placed in supine position. Ane sthesia was given without complication. Time-out was called. Abdomen was prepped and draped in ster ile fashion. Marcaine 0.5% was injected for local anesthetic, followed by sharp incision on the skin in the infraumbilical region. Incision was carried down until we found the anterior rectus sheath. Patient was placed in Trendelenburg position. The anterior rectus sheath was opened, muscle retract ed laterally to expose posterior rectus sheath. The extraperitoneal space was gently developed with the help of blunt dissection and a space maker balloon tip catheter placed over the area directed tow ards the pubis symphysis. A scope was placed in that area. Balloon was inflated under direct visual ization to create the extraperitoneal space. After that, the balloon was deflated, removed, and then we insufflated the area; and then when we had insufflation of the area, we were able to put a 5 mm t rocar just about the pubis symphysis and another one nursing home between the first and the second one. T he preperitoneal space was further developed by exposing the inferior epigastric vessels and keeping them anterior. Yuval ligament was dissected laterally to the junction with the iliac veins. The di ssection continued inferiorly to the iliopubic tract avoiding damage to the genitofemoral nerve and l ateral femoral cutaneous nerve. The cord structures were carefully skeletonized. We noticed a herni a sac present with the fat content. This was reduced back into the abdominal cavity. That was from direct hernia. We also had an indirect hernia sac that was carefully removed from the cord structure s, retracted back into the peritoneal cavity. With the visualization of the hernia sac reduced, we p laced a 3D mesh on the right inguinal region. Outlined this to cover the femoral direct and indirect spaces. The mesh was then secured in place with SorbaFix laterally and superiorly to the ileopubic tract and inferomedial to the Yvual ligament. After ensuring hemostasis and making sure the hernia sac is still reduced into the abdominal cavity, we remove the insufflation under direct visualization holding the mesh in place. We removed the 5 mm trocars, closed the anterior rectus sheath with #1 V icryl and the skin and subcutaneous tissue. At the end of the case, sponge counts and instrument cou nts were correct. Testicles were in the scrotum. Patient tolerated the procedure well. Patient was sent to recovery in stable condition. ADAM/ALAN Voice ID: [id number] Report ID: [id number]
== END 2019-08-30 13:58 | disposition home or self-care (01) ==
LOC: OR 06:47
PROVIDERS: ATTEND Surgery
PROC: 0YU54JZ Supplement Right Inguinal Region with Synthetic Substitute, Percutaneous Endoscopic Approach (ICD-10-PCS; principal; 2019-08-30 08:30)
DX: K40.30 Unilateral inguinal hernia, with obstruction, without gangrene, not specified as recurrent (principal); I10 Essential (primary) hypertension; G47.33 Obstructive sleep apnea (adult) (pediatric); E78.5 Hyperlipidemia, unspecified; E66.9 Obesity, unspecified; Z68.34 Body mass index [BMI] 34.0-34.9, adult; Z79.82 Long term (current) use of aspirin; Z88.8 Allergy status to other drugs, medicaments and biological substances; Z79.899 Other long term (current) drug therapy; Z86.73 Personal history of transient ischemic attack (TIA), and cerebral infarction without residual deficits; Z80.9 Family history of malignant neoplasm, unspecified; Z83.3 Family history of diabetes mellitus
CPT/HCPCS: 93005; 85025; 80048; 36415; 71046; 49650; J2704; J2550; J2250; J3010; J1170; J2710; J0690; J7120 ×2; J2405

== ENCOUNTER 2023-07-24 11:07 | Emergency (ER) | payer OTHER ==
--- OUTSIDE RECORDS SUMMARY | 2023-07-24 11:12 | XMS REPORT | Continuity of Care Document ---
Author Name Unknown Address [address] [place] [address] [facility] thconnect Address [address] [place] [address] Care Team Providers Care Classifications Officer Cc/Cm Name Role Phone Ellis SIDDIQI, [facility] Primary Care Physician [phone] STEPHANIE BAEZ Attending Clinician Unavailable MAKENNA ROSALES Attending Clinician LENNOX Benitez Attending Clinician Unavailable ANTWAN BURRELL Attending Clinician Unavailable MO POLLOCK Attending Clinician Unavailable LENNOX ESPINAL Admitting Clinician Unavailable Payers Payer Name Policy Type Policy Number Effective Date Expirati on Date Source ANDREW VILLA PPO 5 [id number] 2022 00:00:00 Family History Family Member Diagnosis Comments Start Date Stop Date Sourc e Natural father [facility] Natural mother Heart disease [facility] Natural mother Liver failure [facility] Social History Social Habit Start Date Stop Date Quantity Comments Source Sexual orientation Chhaya Soliman - External Gender identity Estrellita Soliman - External Tobacco use and exposure 2023-01-21 00:00:00 2023-01-21 00:00:00 Smokeless tobacco non-user Nan Soliman - External Alcohol intake 2023-01-21 00:00:00 2023-01-21 00:00:00 Lifetime non-drinker (finding) Nan Soliman - External History of Social function 2023-01-21 00:00:00 2023-01-21 00:00:00 Nan Soliman - External Sex Assigned At 1950 00:00:00 1950 00:00:00 Nan Rangel Smoking Status Start Date Stop Date Source Never smoked tobacco Nan Rangel Medications Ordered Medication Name Filled Medication Name Start Date Stop Date Current Medication? Ordering Clinician Indication Dosage Frequency Signature (SIG) Comments Components Source Aspirin 81 MG oral Tablet Delayed Response 02-24 10:48: 51 Yes 81mg Take 1 tablet (81 mg total) by mouth daily Nan judge Atorvastati n Calcium 40 MG oral Tablet 02-19 00:00: 00 Yes TAKE 1 TABLET (40 MG) BY MOUTH DAILY AT NIGHT Nan judge Ketorolac Tromethamin e 10 MG oral Tablet 01-24 00:00: 00 Yes 10mg Take 1 tablet (10 mg total) by mouth 3 times daily Nan judge Ketoconazol e 2 % apply externally Cream 01-21 00:00: 00 02-24 00:00 :00 No [id number] Apply 1 applicatio n. topically 2 times daily Apply to affected areas twice daily for four weeks. Nan judge Terbinafine HCl 250 MG oral Tablet 01-21 00:00: 00 02-24 00:00 :00 No [id number] 250mg Take 1 tablet (250 mg total) by mouth daily for 14 days Nan judge Ketoconazol e 2 % apply externally Cream 01-21 00:00: 00 02-21 04:59 :00 No [id number] Apply 1 applicatio n. topically 2 times daily Apply to affected areas twice daily for four weeks. Nan judge Terbinafine HCl 250 MG oral Tablet 01-21 00:00: 00 02-05 04:59 :00 No [id number] 250mg Take 1 tablet (250 mg total) by mouth daily for 14 days Nan judge Amlodipine Besylate 2.5 MG oral Tablet 01-15 00:00: 00 Yes 2.5mg Take 1 tablet (2.5 mg total) by mouth daily for blood pressure Nan judge Atorvastati n Calcium 10 MG oral Tablet 01-15 00:00: 00 Yes 10mg Take 1 tablet (10 mg total) by mouth daily Nan judge busPIRone HCl 5 MG oral Tablet 01-15 00:00: 00 Yes 5mg [id number] 3D Take 1 tablet (5 mg total) by mouth 3 times daily as needed Nan judge Montelukast (SINGULAIR) 10 MG oral Tablet tablet 01-15 00:00: 00 Yes TAKE 1 TABLET BY MOUTH AT BEDTIME FOR ALLERGIES Nan judge Amlodipine Besylate 2.5 MG oral Tablet 01-15 00:00: 00 Yes 2.5mg Take 1 tablet (2.5 mg total) by mouth daily for blood pressure Nan judge busPIRone HCl 5 MG oral Tablet 01-15 00:00: 00 Yes 5mg Q.[id number] 3D Take 1 tablet (5 mg total) by mouth 3 times daily as needed Nan judge Montelukast (SINGULAIR) 10 MG oral Tablet tablet 01-15 00:00: 00 Yes TAKE 1 TABLET BY MOUTH AT BEDTIME FOR ALLERGIES Nan judge Atorvastati n Calcium 10 MG oral Tablet 01-15 00:00: 00 02-24 00:00 :00 No 10mg Take 1 tablet (10 mg total) by mouth daily Nan judge Valsartan 320 MG oral Tablet - 00:00: 00 Yes 320mg Take 1 tablet (320 mg total) by mouth daily Nan judge Valsartan 320 MG oral Tablet 25 00:00: 00 Yes 320mg Take 1 tablet (320 mg total) by mouth daily Nan judge Fenofibrate 145 MG oral Tablet -12 00:00: 00 Yes 145mg Take 1 tablet (145 mg total) by mouth daily Nan Seybold - Externa l Fenofibrate 145 MG oral Tablet 11-25 00:00: 00 Yes 145mg Take 1 tablet (145 mg total) by mouth daily Nan Lowery [facility] methylPREDN ISolone (MEDROL DOSEPAK) 4 mg tablet 2019-08 00:00: [address] Yes QD daily. [facility] methylPREDN ISolone (MEDROL DOSEPAK) 4 mg tablet 2019-08 00:00: 00 Yes QD daily. [facility] methylPREDN ISolone (MEDROL DOSEPAK) 4 mg tablet 2019-08 00:00: 00 Yes QD daily. [facility] methylPREDN ISolone (MEDROL DOSEPAK) 4 mg tablet 2019-08 00:00: 00 Yes QD daily. [facility] methylPREDN ISolone (MEDROL DOSEPAK) 4 mg tablet 2019-08 00:00: 00 Yes QD daily. [facility] valsartan (DIOVAN) 160 MG tablet 2019-08 00:00: 00 Yes 160mg QD Take 160 mg by mouth every morning. [facility] gemfibroziL (LOPID) 600 MG tablet 2019-08 00:00: 00 Yes 600mg QD Take 600 mg by mouth every morning. [facility] valsartan (DIOVAN) 160 MG tablet 2019-08 00:00: 00 Yes 160mg QD Take 160 mg by mouth every morning. [facility] gemfibroziL (LOPID) 600 MG tablet 2019-08 00:00: 00 Yes 600mg QD Take 600 mg by mouth every morning. [facility] valsartan (DIOVAN) 160 MG tablet 2019-08 00:00: 00 Yes 160mg QD Take 160 mg by mouth every morning. [facility] gemfibroziL (LOPID) 600 MG tablet 2019-08 00:00: 00 Yes 600mg QD Take 600 mg by mouth every morning. [facility] valsartan (DIOVAN) 160 MG tablet 2019-08 00:00: 00 Yes 160mg QD Take 160 mg by mouth every morning. [facility] gemfibroziL (LOPID) 600 MG tablet 2019-08 00:00: 00 Yes 600mg QD Take 600 mg by mouth every morning. [facility] valsartan (DIOVAN) 160 MG tablet 2019-08 00:00: 00 Yes 160mg QD Take 160 mg by mouth every morning. [facility] gemfibroziL (LOPID) 600 MG tablet 2019-08 00:00: 00 Yes 600mg QD Take 600 mg by mouth every morning. [facility] atorvastati n (LIPITOR) 10 mg tablet 2019-08 00:00: 00 Yes 10mg QD Take 10 mg by mouth every morning. [facility] atorvastati n (LIPITOR) 10 mg tablet 2019-08 00:00: 00 Yes 10mg QD Take 10 mg by mouth every morning. [facility] atorvastati n (LIPITOR) 10 mg tablet 2019-08 00:00: 00 Yes 10mg QD Take 10 mg by mouth every morning. [facility] atorvastati n (LIPITOR) 10 mg tablet 2019-08 00:00: 00 Yes 10mg QD Take 10 mg by mouth every morning. [facility] l atorvastati n (LIPITOR) 10 mg tablet 2019-08 00:00: 00 Yes 10mg QD Take 10 mg by mouth every morning. [facility] l penicillin v potassium (VEETID) 500 MG tablet 2019-08 00:00: 00 Yes TAKE 1 TABLET BY MOUTH EVERY 6 HOURS UNTIL ALL ARE TAKEN [facility] l acetaminoph en-codeine (TYLENOL WITH CODEINE #3) 300-30 mg per tablet 2019-08 00:00: 00 Yes 1{tbl} Take 1 tablet by mouth. [facility] penicillin v potassium (VEETID) 500 MG tablet 2019-08 00:00: 00 Yes TAKE 1 TABLET BY MOUTH EVERY 6 HOURS UNTIL ALL ARE TAKEN [facility] l acetaminoph en-codeine (TYLENOL WITH CODEINE #3) 300-30 mg per tablet 2019-08 00:00: 00 Yes 1{tbl} Take 1 tablet by mouth. [facility] penicillin v potassium (VEETID) 500 MG tablet 2019-08 00:00: 00 Yes TAKE 1 TABLET BY MOUTH EVERY 6 HOURS UNTIL ALL ARE TAKEN [facility] acetaminoph en-codeine (TYLENOL WITH CODEINE #3) 300-30 mg per tablet 2019-08 00:00: 00 Yes 1{tbl} Take 1 tablet by mouth. [facility] penicillin v potassium (VEETID) 500 MG tablet 2019-08 00:00: 00 Yes TAKE 1 TABLET BY MOUTH EVERY 6 HOURS UNTIL ALL ARE TAKEN [facility] acetaminoph en-codeine (TYLENOL WITH CODEINE #3) 300-30 mg per tablet 2019-08 00:00: 00 Yes 1{tbl} Take 1 tablet by mouth. [facility] penicillin v potassium (VEETID) 500 MG tablet 2019-08 00:00: 00 Yes TAKE 1 TABLET BY MOUTH EVERY 6 HOURS UNTIL ALL ARE TAKEN [facility] acetaminoph en-codeine (TYLENOL WITH CODEINE #3) 300-30 mg per tablet 2019-08 00:00: 00 Yes 1{tbl} Take 1 tablet by mouth. [facility] Plan of Care Planned Activity Planned Date Details Comments Source Future Scheduled Test 2022-08-31 15:00:41 Hepatitis C screening (procedure) [code = 348239893] [facility] Future Scheduled Test 2022-08-31 15:00:41 COLONOSCOPY SCREENING [code = COLONOSCOPY SCREENING] [facility] Future Scheduled Test 2022-08-31 15:00:41 SHINGLES VACCINES (1 of 2) [code = SHINGLES VACCINES (1 of 2)] [facility] Future Scheduled Test 2022-08-31 15:00:41 65+ PNEUMOCOCCAL VACCINE (2 - PCV) [code = 65+ PNEUMOCOCCAL VACCINE (2 - PCV)] [facility] Future Scheduled Test 2022-08-31 15:00:41 COVID-19 VACCINE (2 - Moderna series) [code = COVID-19 VACCINE (2 - Moderna series)] [facility] Future Scheduled Test 2022-08-31 15:00:41 INFLUENZA VACCINE [code = INFLUENZA VACCINE] [facility] Future Scheduled Test 2022-08-19 15:14:48 Hepatitis C screening (procedure) [code = 075755163] [facility] Future Scheduled Test 2022-08-19 15:14:48 COLONOSCOPY SCREENING [code = COLONOSCOPY SCREENING] [facility] Future Scheduled Test 2022-08-19 15:14:48 SHINGLES VACCINES (1 of 2) [code = SHINGLES VACCINES (1 of 2)] [facility] Future Scheduled Test 2022-08-19 15:14:48 65+ PNEUMOCOCCAL VACCINE (2 - PCV) [code = 65+ PNEUMOCOCCAL VACCINE (2 - PCV)] [facility] Future Scheduled Test 2022-08-19 15:14:48 COVID-19 VACCINE (2 - Moderna series) [code = COVID-19 VACCINE (2 - Moderna series)] [facility] Future Scheduled Test 2022-08-19 15:14:48 INFLUENZA VACCINE [code = INFLUENZA VACCINE] [facility] Scheduled Test 2022-08-19 15:14:48 Hepatitis C screening (procedure) [code = 341861671] [facility] Future Scheduled Test 2022-08-19 15:14:48 COLONOSCOPY SCREENING [code = COLONOSCOPY SCREENING] [facility] Future Scheduled Test 2022-08-19 15:14:48 SHINGLES VACCINES (1 of 2) [code = SHINGLES VACCINES (1 of 2)] [facility] Scheduled Test 2022-08-19 15:14:48 65+ PNEUMOCOCCAL VACCINE (2 - PCV) [code = 65+ PNEUMOCOCCAL VACCINE (2 - PCV)] [facility] Future Scheduled Test 2022-08-19 15:14:48 COVID-19 VACCINE (2 - Moderna series) [code = COVID-19 VACCINE (2 - Moderna series)] [facility] Future Scheduled Test 2022-08-19 15:14:48 INFLUENZA VACCINE [code = INFLUENZA VACCINE] [facility] Future Scheduled Test 2022-08-19 15:14:48 Hepatitis C screening (procedure) [code = [id number]] [facility] Future Scheduled Test 2022-08-19 15:14:48 COLONOSCOPY SCREENING [code = COLONOSCOPY SCREENING] [facility] Future Scheduled Test 2022-08-19 15:14:48 SHINGLES VACCINES (1 of 2) [code = SHINGLES VACCINES (1 of 2)] [facility] Future Scheduled Test 2022-08-19 15:14:48 65+ PNEUMOCOCCAL VACCINE (2 - PCV) [code = 65+ PNEUMOCOCCAL VACCINE (2 - PCV)] [facility] Future Scheduled Test 2022-08-19 15:14:48 COVID-19 VACCINE (2 - Moderna series) [code = COVID-19 VACCINE (2 - Moderna series)] [facility] Future Scheduled Test 2022-08-19 15:14:48 INFLUENZA VACCINE [code = INFLUENZA VACCINE] [facility] Future Scheduled Test 2022-08-02 14:45:28 Hepatitis C screening (procedure) [code = [id number]] [facility] Future Scheduled Test 2022-08-02 14:45:28 COLONOSCOPY SCREENING [code = COLONOSCOPY SCREENING] [facility] Future Scheduled Test 2022-08-02 14:45:28 SHINGLES VACCINES (1 of 2) [code = SHINGLES VACCINES (1 of 2)] [facility] Future Scheduled Test 2022-08-02 14:45:28 65+ PNEUMOCOCCAL VACCINE (2 - PCV) [code = 65+ PNEUMOCOCCAL VACCINE (2 - PCV)] [facility] Future Scheduled Test 2022-08-02 14:45:28 COVID-19 VACCINE (2 - Moderna series) [code = COVID-19 VACCINE (2 - Moderna series)] [facility] Future Scheduled Test 2022-08-02 14:45:28 INFLUENZA VACCINE [code = INFLUENZA VACCINE] [facility] Encounters Start Date/Time End Date/Time Encounter Type Admission Type Attending [facility] Care Facility Care Department Encounter ID Source 2023-03-18 15:55:01 Outpatient [facility] [id number] 2023-03-17 00:00:00 2023-03-17 00:00:00 Outpatient STEPHANIE BAEZ [facility] [id number] [facility] 2023-02-24 10:45:00 2023-02-24 10:45:00 Outpatient MAKENNA ROSALES [id number] Nan Soliman 2023-02-11 00:00:00 2023-02-11 00:00:00 Inpatient LENNOX ESPINAL [facility] [id number] [facility] 2023-02-10 00:00:00 2023-02-11 00:00:00 Outpatient LENNOX ESPINAL [facility] [id number] [facility] 2023-01-28 00:00:00 2023-01-28 00:00:00 Outpatient ANTWAN BURRELL [facility] [id number] [facility] 2023-01-21 09:45:00 2023-01-21 09:45:00 Outpatient MAKENNA ROSALES [id number] Nan Soliman 2020-10-17 00:00:00 2020-10-17 00:00:00 Outpatient MO POLLOCK [facility] [id number] 2020-10-17 00:00:00 2020-10-17 00:00:00 Outpatient MO POLLOCK [facility] [id number] 2020-10-17 00:00:00 2020-10-17 00:00:00 Outpatient MO POLLOCK [facility] [id number] 2020-09-04 00:00:00 2020-09-04 00:00:00 Outpatient MO POLLOCK [facility] [id number] [facility]
[2023-07-24 12:02] LABS: Specific Gravity 1.018 (1.005-1.030); Urine Bacteria None Seen /HPF (<20); Urine Bilirubin NEGATIVE (Negative); Urine Blood 3+ (OVER) (Negative); Urine Clarity Clear (Clear); Urine Color Light-Yellow (Yellow); Urine Glucose NEGATIVE (Negative); Urine Mucus Slight /HPF (None Seen); Urine Protein NEGATIVE (Negative); Urine RBC >50 /HPF (None Seen); Urine Urobilinogen 2+ (Normal)
[2023-07-24 12:12] LABS: Absolute Lymphocytes (CBC) 2.3 K/uL (0.7-4.9); Hematocrit 41.4 % (39.6-49.0); Lymphocytes % 27.5 % (15.3-44.8); MCV 89.4 fL (80-100); MPV 8.3 fL (7.6-11.3); Platelets 279 thou/uL (152-406); RBC Red Blood Cell Count 4.63 M/uL (4.33-5.43)
[2023-07-24 12:15] LABS: Albumin 3.6 g/dL (3.4-5.0); Bilirubin Total 0.6 mg/dL (0.2-1.0); Potassium 3.8 mEq/L (3.5-5.1); Protein, Total 7.6 g/dL (6.4-8.2)
--- NOTE | 2023-07-24 13:20 | RAD REPORT ---
EXAM DESCRIPTION: CT - Abdomen Pelvis W Contrast - 07/24/2023 12:27 pm CLINICAL HISTORY: hematuria;Abd pain COMPARISON: Abdomen Pelvis W Contrast dated 08/14/2019; Abdomen Pelvis W Contrast dated 9; Abdomen Pelvis W Contrast dated 08/03/2018 TECHNIQUE: Thin cut axial CT imaging of the abdomen and pelvis was performed following intravenous a dministration of 100 mL Isovue 300, with additional delayed images of the pelvis performed. Multiplan ar reformats were generated and reviewed. All CT scans are performed using dose optimization technique as appropriate and may include automated exposure control or mA/KV adjustment according to patient size. FINDINGS: No suspicious findings in the lung bases. The liver, spleen, adrenal glands, and pancreas show no suspicious findings. Gallbladder and biliary tree are also without suspicious finding. Symmetric renal function is seen with no hydronephrosis or suspicious renal mass. Stable right lower pole 1.9 cm lobulated cyst and smaller cysts along the lower pole of the left kidney. No dilated bowel loops or bowel wall thickening. No free air, free fluid or inflammatory stranding. N o hernia, mass or bulky lymphadenopathy. Marked prostatomegaly again seen. The urinary bladder is wit hout significant finding. No appreciable bladder wall abnormality on the delayed phase. The opacified portions of the distal ureters are unremarkable. No suspicious bony findings. Interval sequelae of posterior approach L3-L5 fusion. IMPRESSION: No acute intra-abdominal process. Stable marked prostatomegaly. 1 small bilateral renal cortical cysts are also grossly stable.
[2023-07-24] MEDS ORDERED: NA CHLORIDE 0.9% 1,000 ML ONE (13:53)
[2023-07-24] MEDS ORDERED: CEFTRIAXONE 1000 MG/VIAL ONE (14:22)
--- NOTE | 2023-07-24 14:50 | ER ---
Nurse's Notes [facility] Name: Yobany Harris Jr Age: 73 yrs Sex: Male : 1950 Arrival Date: 07/24/2023 Time: 11:07 Bed 7 Private MD: Diagnosis: Gross hematuria Presentation: 07/24 11:17 Chief complaint: Blood in urine + clots, intermittent difficulty urinating, and hb suprapubic pain that radiates to low back since yesterday. Takes ASA daily, held dose today. Coronavirus screen: At this time, the client does not indicate any symptoms associated with coronavirus-19. Ebola Screen: No symptoms or risks identified at this time. Initial Sepsis Screen: Does the patient meet any 2 criteria? No. Patient's initial sepsis screen is negative. Does the patient have a suspected source of infection? No. Patient's initial sepsis screen is negative. Risk Assessment: Do you want to hurt yourself or someone else? Patient reports no desire to harm self or others. Onset of symptoms was July 23, 2023. 11:17 Method Of Arrival: Ambulatory hb 11:17 Acuity: BILL 3 hb Historical: - Allergies: 11:19 cyclobenzaprine HCl; hb - PMHx: 11:19 CAD; CVA; Hyperlipidemia; Hypertension; hb - Immunization history:: Adult Immunizations up to date. - Social history:: Smoking status: Patient denies any tobacco usage or history of. Screenin:23 [facility] ED Fall Risk Assessment (Adult) History of falling in the last 3 months, ko1 including since admission No falls in past 3 months (0 pts) Confusion or Disorientation No (0 pts) Intoxicated or Sedated No (0 pts) Impaired Gait No (0 pts) Mobility Assist Device Used No (0 pt) Altered Elimination No (0 pt) Score/Fall Risk Level 0 - 2 = Low Risk Oriented to surroundings, Maintained a safe environment, Educated pt \T\ family on fall prevention, incl call for assistance when getting out of bed, Assessed \T\ reinforced patient's understanding of fall precautions, Provided non-skid footwear, Hourly rounding (assess needs \T\ fall precautionary measures) done, Used ambulatory aids as needed (educated on \T\ assisted with). Abuse screen: Denies threats or abuse. Denies injuries from another. Nutritional screening: No deficits noted. Tuberculosis screening: No symptoms or risk factors identified. Assessment: 11:23 General: Appears in no apparent distress. comfortable, Behavior is calm, cooperative, ko1 appropriate for age. Pain: Complains of pain in back. Neuro: No deficits noted. Cardiovascular: No deficits noted. Respiratory: No deficits noted. GI: No deficits noted. : Reports blood in urine with clots. EENT: No deficits noted. Derm: No deficits noted. Musculoskeletal: No deficits noted. Vital Signs: 11:17 BP 154 / 72; Pulse 62; Resp 16; Temp 98.5(TE); Pulse Ox 99% on R/A; Weight 113.4 kg; hb Height 5 ft. 11 in. ; Pain 2/10; 11:46 BP 146 / 73; Pulse 52; Resp 15; Pulse Ox 97% ; ko1 12:21 BP 141 / 66; Pulse 65; Resp 15; Pulse Ox 99% ; ko1 14:32 BP 143 / 75; Pulse 50; Resp 14; Pulse Ox 98% ; ko1 11:17 Body Mass Index 34.87 (113.40 kg, 180.34 cm) hb 11:17 Pain Scale: Adult hb ED Course: 11:10 Patient arrived in ED. im 11:11 Mckenna Velazquez PA-C is PHCP. sb4 11:11 Marcel Moore is Attending Physician. sb4 11:17 Porsche Han, PADMINI is Primary Nurse. ko1 11:19 Triage completed. hb 11:19 Arm band placed on. hb 11:23 Patient has correct armband on for positive identification. Bed in low position. Call ko1 light in reach. Side rails up X 1. Provided Education on: na. Pulse ox on. NIBP on. Door closed. Noise minimized. Lights dimmed. Warm blanket given. 11:40 Inserted saline lock: 20 gauge in right antecubital area, using aseptic technique. ko1 Blood collected. 11:44 CBC with Diff Sent. ko1 11:44 CMP Sent. ko1 11:45 Urinalysis w/ reflexes Sent. ko1 12:28 CT Abd/Pelvis - IV Contrast Only In Process Unspecified. EDMS 14:48 No provider procedures requiring assistance completed. IV discontinued, intact, ko1 bleeding controlled, No redness/swelling at site. Pressure dressing applied. 14:49 Flako Malloy MD is Referral Physician. sb4 Administered Medications: 13:40 Drug: NS 0.9% IV 1000 ml IV at 1 bolus Per protocol; 1000 mL bolus Route: IV; Rate: 1 ko1 bolus; Site: right antecubital; 14:11 Drug: Rocephin IV 1 grams IV at calculated rate once; Given slow IV push per pharmacy ko1 instructions Route: IV; Rate: calculated rate; Site: right antecubital; Medication: 11:23 VIS not applicable for this client. ko1 Outcome: 14:49 Discharge ordered by . sb4 15:09 Discharged to home ambulatory, with family, ko1 15:09 Condition: stable 15:09 Discharge instructions given to patient, family, Instructed on discharge instructions, follow up and referral plans. Demonstrated understanding of instructions, follow-up care, 15:09 Patient left the ED. ko1 Signatures: Dispatcher [employer] EDMS Stephy Barnes RN RN Roberta Churchill RN RN ld1 Porsche Han RN RN ko1 Mckenna Velazquez, PA-C PA-Vinicio sb4 Mariana Mariscal Corrections: (The following items were deleted from the chart) 13:48 12:21 BP 141 / 66; ld1 ko1
--- NOTE | 2023-07-24 14:50 | EDPHYS ---
Physician Documentation [facility] Name: Yobany Harris Jr Age: 73 yrs Sex: Male : 1950 Arrival Date: 07/24/2023 Time: 11:07 Bed 7 Private MD: ED Physician Marcel Moore HPI: 07/24 11:45 This 73 yrs old Male presents to ER via Ambulatory with complaints of sb4 Urinating blood, Low Back Pain. 11:45 Patient reports gross hematuria and passage of clots x 24 hours. He states that this sb4 has happened in the past and has resolved with antibiotics. He has had 4 TURPs prior and a negative cystogram. He does endorse a history of kidney stones. He is no longer experiencing hematuria upon arrival. He does endorse some mild low back pain and suprapubic pain. Denies any fever, burning with urination. Does endorse frequency. Historical: - Allergies: 11:19 cyclobenzaprine HCl; hb - PMHx: 11:19 CAD; CVA; Hyperlipidemia; Hypertension; hb - Immunization history:: Adult Immunizations up to date. - Social history:: Smoking status: Patient denies any tobacco usage or history of. ROS: 11:45 Constitutional: Negative for fever, chills, and weight loss, sb4 11:45 Abdomen/GI: Positive for abdominal pain, 11:45 Back: Positive for pain at rest, 11:45 : Positive for urinary frequency, hematuria, 11:45 All other systems are negative, Exam: 11:45 Constitutional: This is a well developed, well nourished patient who is awake, alert, sb4 and in no acute distress. Head/Face: Normocephalic, atraumatic. Eyes: Extra-ocular motions intact. Periorbital areas with no swelling, redness, or edema. ENT: Mucous membranes moist. Cardiovascular: Regular rate and rhythm with a normal S1 and S2. Respiratory: Lungs have equal breath sounds bilaterally, clear to auscultation and percussion. No rales, rhonchi or wheezes noted. No increased work of breathing, no retractions or nasal flaring. Abdomen/GI: Soft, non-tender, no distension. Skin: Warm, dry with normal turgor. Normal color with no rashes, no lesions, and no evidence of cellulitis. MS/ Extremity: Pulses equal, no cyanosis. Neurovascular intact. Full, normal range of motion. Neuro: Awake and alert, GCS 15, oriented to person, place, time, and situation. Motor strength 5/5 in all extremities. Sensory grossly intact. 11:45 Back: CVA tenderness, is absent, sb4 Vital Signs: 11:17 BP 154 / 72; Pulse 62; Resp 16; Temp 98.5(TE); Pulse Ox 99% on R/A; Weight 113.4 kg; hb Height 5 ft. 11 in. ; Pain 2/10; 11:46 BP 146 / 73; Pulse 52; Resp 15; Pulse Ox 97% ; ko1 12:21 BP 141 / 66; Pulse 65; Resp 15; Pulse Ox 99% ; ko1 14:32 BP 143 / 75; Pulse 50; Resp 14; Pulse Ox 98% ; ko1 11:17 Body Mass Index 34.87 (113.40 kg, 180.34 cm) hb 11:17 Pain Scale: Adult hb MDM: 11:16 Patient medically screened. sb4 11:45 Differential diagnosis: UTI, prostatitis, urethritis, nephrolithiasis, sb4 ureterolithiasis, hematuria, bladder malignancy. 14:49 Data reviewed: vital signs, nurses notes, lab test result(s), radiologic studies, and sb4 as a result, I will discharge patient. Consideration of Admission/Observation Escalation of care including admission/observation considered. Historians other than the Patient: Spouse/Significant Other: . Care significantly affected by the following chronic conditions: Hypertension. Counseling: I had a detailed discussion with the patient and/or guardian regarding the historical points, exam findings, and any diagnostic results supporting the discharge/admit diagnosis, the presence of at least one elevated blood pressure reading (>120/80) during this emergency department visit, lab results, radiology results, the need for outpatient follow up, a urologist, to return to the emergency department if symptoms worsen or persist or if there are any questions or concerns that arise at home. 07/24 11:33 Order name: CBC with Diff; Complete Time: 12:13 sb4 07/24 11:33 Order name: CMP; Complete Time: 12:15 sb4 07/24 11:33 Order name: Urinalysis w/ reflexes; Complete Time: 12:02 sb4 07/24 12:02 Order name: Urine Culture; Complete Time: 09:20 sb4 07/24 11:33 Order name: CT Abd/Pelvis - IV Contrast Only; Complete Time: 13:25 sb4 07/24 11:33 Order name: IV Saline Lock; Complete Time: 11:45 sb4 07/24 11:33 Order name: Labs collected and sent; Complete Time: 11:45 sb4 Administered Medications: 13:40 Drug: NS 0.9% IV 1000 ml IV at 1 bolus Per protocol; 1000 mL bolus Route: IV; Rate: 1 ko1 bolus; Site: right antecubital; 14:11 Drug: Rocephin IV 1 grams IV at calculated rate once; Given slow IV push per pharmacy ko1 instructions Route: IV; Rate: calculated rate; Site: right antecubital; Disposition Summary: 07/24/23 14:49 Discharge Ordered Notes: Location: Home sb4 Problem: new sb4 Symptoms: are unchanged sb4 Condition: Stable sb4 Diagnosis - Gross hematuria sb4 Followup: sb4 - With: Flako Malloy MD - When: 2 - 3 days - Reason: Further diagnostic work-up, Recheck today's complaints, Re-evaluation by your physician Discharge Instructions: - Discharge Summary Sheet sb4 - Hematuria, Adult sb4 - Percutaneous Kidney Biopsy sb4 Forms: - Medication Reconciliation Form sb4 - Thank You Letter sb4 - Antibiotic Education sb4 - Prescription Opioid Use sb4 - Patient Portal Instructions sb4 - Leadership Thank You Letter sb4 Addendum: 08/02/2023 09:20 I reviewed the patient's care provided by the Advanced Practice Provider and agree with edson mcginnis the diagnosis and treatment plan. Signatures: Dispatcher [employer] Stephy Burger, RN RN Porsche Cho, RN RN ko1 Mckenna Velazquez PA-C PA-C sb4 [email or web address]
[2023-07-24 15:22] VITALS: TEMP 98.5
[2023-07-24 15:34] VITALS: BP 143/75; O2SAT 98
== END 2023-07-24 15:09 | disposition home or self-care (01) ==
LOC: ER 11:07
DX: R31.9 Hematuria, unspecified (principal); I10 Essential (primary) hypertension; E78.5 Hyperlipidemia, unspecified
CPT/HCPCS: 87088; 85025; 81001; 87086; 36415; 80053; 74177; 96374; 99284; Q9967; J7030; J0696

== ENCOUNTER 2025-03-23 11:47 | Observation (INO) | payer OTHER ==
[2025-03-23 13:01] LABS: Absolute Lymphocytes (CBC) 2.3 K/uL (0.7-4.9); Hematocrit 46.3 % (39.6-49.0); Hemoglobin 15.9 g/dL (13.6-17.9); MCH 30.1 pg (27.0-35.0); MCHC 34.3 g/dL (32.0-36.0); MCV 87.7 fL (80-100); MPV 8.4 fL (7.6-11.3); Nucleated RBC Absolute Count 0.0 (0-0); Nucleated Red Blood Cells % 0.1 % (0-0); RBC Red Blood Cell Count 5.28 M/uL (4.33-5.43); White Blood Count 9.20 thou/uL (4.3-10.9)
[2025-03-23 13:22] LABS: ALT/SGPT 48.0 U/L (16-61); AST/SGOT 54.0 U/L (15-37); Albumin 4.0 g/dL (3.4-5.0); Albumin/Globulin Ratio 1.0 (1.1-1.8); Alkaline Phosphatase 83.0 U/L (45-117); Anion Gap 7.8 mEq/L (5.0-15.0); BUN Blood Urea Nitrogen 29.0 mg/dL (7-18); Bilirubin Indirect, Calculated 0.4 mg/dL (0.2-0.8); Globulin 4.2 g/dL (2.3-3.5); Glucose Level 115.0 mg/dL (74-106); Magnesium 2.4 mg/dL (1.6-2.4); NT PRO-BNP 73.0 pg/mL (<450); Potassium 3.8 mEq/L (3.5-5.1); Troponin High Sensitivity 29.5 pg/mL (<58.9)
--- NOTE | 2025-03-23 13:49 | RAD REPORT ---
EXAMINATION: ONE VIEW CHEST XR CLINICAL INDICATION: CP TECHNIQUE: Frontal chest projection is submitted. Examination is limited by patient positioning and t echnique. COMPARISON: 10/29/2022 FINDINGS: Mild interstitial pulmonary edema. The heart is upper limit of normal in size. No displaced fractures identified. Sternotomy wires.
--- NOTE | 2025-03-23 15:27 | EDPHYS ---
Physician Documentation [facility] Name: Yobany Harris Jr Age: 74 yrs Sex: Male : 1950 Arrival Date: 03/23/2025 Time: 11:47 Bed 8 Private MD: ED Physician Rashi Marcano HPI: 03/23 13:34 Chief Complaint: Chest pain and tightness. History of Present Illness: The patient, alexei presented with a few days of chest pain and tightness. has a history of open-heart surgery in November 2003. The chest tightness is a new symptom, not present after surgery until recently. A routine cardiac workup, including a stress test, was performed earlier this year without any episodes of chest pain at that time. The patient has been taking 324 mg aspirin daily and a beta marlee for blood pressure management. reports having hypertension and hyperlipidemia. An EKG performed showed some abnormalities, prompting admission for further observation and testing to ensure cardiac health. Review of Systems: - Cardiovascular: Chest pain and tightness for a few days. - Endocrine: No mention of diabetes symptoms. - ROS otherwise negative. . Historical: - Allergies: 12: Flexeril; bp - PMHx: 12:01 CAD; CVA; Hyperlipidemia; Hypertension; bp - Immunization history:: Adult Immunizations up to date. - Infectious Disease History:: Denies. - Social history:: Smoking status: Patient denies any tobacco usage or history of. Exam: 13:34 Constitutional: This is a well developed, well nourished patient who is awake, alert, jr11 and in no acute distress. Head/Face: Normocephalic, atraumatic. Eyes: Extra-ocular motions intact. Lids and lashes normal. Conjunctiva and sclera are non-icteric and not injected. Cornea within normal limits. Periorbital areas with no swelling, redness, or edema. ENT: Nares patent. No nasal discharge, no septal abnormalities noted. Oropharynx with no redness, swelling, or masses, exudates, or evidence of obstruction, uvula midline. Mucous membranes moist. Neck: Trachea midline, no thyromegaly or masses palpated, and no cervical lymphadenopathy. Supple, full range of motion without nuchal rigidity, or vertebral point tenderness. No Meningismus. Chest/axilla: Normal chest wall appearance and motion. Nontender with no deformity. No lesions are appreciated. Cardiovascular: Regular rate and rhythm with a normal S1 and S2. No gallops, murmurs, or rubs. Normal PMI, no JVD. No pulse deficits. Respiratory: Lungs have equal breath sounds bilaterally, clear to auscultation and percussion. No rales, rhonchi or wheezes noted. No increased work of breathing, no retractions or nasal flaring. Abdomen/GI: Soft, non-tender, with normal bowel sounds. No distension or tympany. No guarding or rebound. No evidence of tenderness throughout. Back: No spinal tenderness. No costovertebral tenderness. Full range of motion. Skin: Warm, dry with normal turgor. Normal color with no rashes, no lesions, and no evidence of cellulitis. MS/ Extremity: Pulses equal, no cyanosis. Neurovascular intact. Full, normal range of motion. Vital Signs: 12:00 BP 155 / 71; Pulse 57; Resp 16; Temp 97.3; Pulse Ox 97% ; Weight 111.58 kg; Height 5 bp ft. 11 in. ; 13:28 BP 128 / 66; Pulse 53; Resp 17; Pulse Ox 95% on R/A; Pain 0/10; ll1 14:30 BP 137 / 65; Pulse 52; Resp 16; Pulse Ox 95% on R/A; ll1 15:32 BP 168 / 99; Pulse 65; Resp 17; Pulse Ox 98% ; ll1 16:07 BP 133 / 60; Pulse 58; Resp 17; Pulse Ox 100% on R/A; ll1 12:00 Body Mass Index 34.31 (111.58 kg, 180.34 cm) bp 13:28 Pain Scale: Adult ll1 MDM: 12:16 Medical Screening Exam initiated jr11 13:34 Differential diagnosis: Medical Decision Makin. Acute Coronary Syndrome: Possible jr11 given the chest pain and history of heart surgery. Requires monitoring and further testing. 2. Angina: Likely due to history of coronary artery disease, especially given the recent EKG changes. 3. Myocardial Infarction: Less likely without EKG evidence of a massive heart attack, but still considered due to chest pain. 4. Pulmonary Embolism: Unlikely but considered due to the presentation of chest pain. ddimer negative Plan: - Admit for overnight observation and monitoring. - Continue aspirin and beta marlee as prescribed. - Monitor cardiac enzymes and repeat EKG. - Consult with cards - Discuss possible need for further cardiac imaging or intervention based on test results. ED course: EKG in the office shows ventral rhythm of 57 prolonged AK at 200 normal axis, about [address] depression in V4 through V6 with T wave inversion, EKG interpreted by me done in the emergency department shows less than 1 mm lateral depression V4-V6 otherwise no STEMI. mixer runner interpreted by me shows normal sinus rhythm rate of 55 chest x-ray interpreted by me shows no pneumonia. 03/23 11:56 Order name: Basic Metabolic Panel; Complete Time: 13:27 [facility] 03/23 11:56 Order name: CBC with Diff; Complete Time: 13:27 [facility] 03/23 11:56 Order name: D-Dimer; Complete Time: 13:27 [facility] 03/23 11:56 Order name: LFT's; Complete Time: 13:27 [facility] 03/23 11:56 Order name: Magnesium; Complete Time: 13:27 [facility] 03/23 11:56 Order name: NT PRO-BNP; Complete Time: 13:27 [facility] 03/23 11:56 Order name: Troponin HS; Complete Time: 13:27 [facility] 03/23 16:06 Order name: UA Rfx Kali Cult if indicated; Complete Time: 17:06 [facility] 03/23 17:10 Order name: Basic Metabolic Panel EDMS 03/23 17:10 Order name: Basic Metabolic Panel EDMS 03/23 17:10 Order name: CBC with Automated Diff EDMS 03/23 17:10 Order name: CBC with Automated Diff EDMS 03/23 17:10 Order name: Lipid Profile EDMS 03/23 17:10 Order name: Lipid Profile EDMS 03/23 17:10 Order name: Magnesium EDMS 03/23 17:10 Order name: Magnesium EDMS 03/23 17:10 Order name: Phosphorus EDMS 03/23 17:10 Order name: Phosphorus EDMS 03/23 17:10 Order name: T4 Free EDMS 03/23 17:10 Order name: T4 Free EDMS 03/23 17:10 Order name: Thyroid Stimulating Hormone EDMS 03/23 17:10 Order name: Thyroid Stimulating Hormone EDMS 03/23 17:10 Order name: Troponin High Sensitivity EDMS 03/23 17:10 Order name: Troponin High Sensitivity EDMS 03/23 17:10 Order name: Troponin High Sensitivity [facility] 03/23 11:56 Order name: XRAY Chest (1 view); Complete Time: 13:50 [facility] 03/23 11:56 Order name: Cardiac monitoring; Complete Time: 12:39 [facility] 03/23 11:56 Order name: EKG - Nurse/Tech; Complete Time: 12:39 [facility] 03/23 11:56 Order name: IV Saline Lock; Complete Time: 12:52 [facility] 03/23 11:56 Order name: Labs collected and sent; Complete Time: 12:52 [facility] 03/23 11:56 Order name: O2 Per Protocol; Complete Time: 12:39 [facility] 03/23 11:56 Order name: O2 Sat Monitoring; Complete Time: 12:39 [facility] Administered Medications: 12:40 Not Given (taken GLOBAL COORDINATOR): aspirinchewable tablet 324 mg PO once; 81 mg tablets x 4 ll1 Disposition Summary: 03/23/25 15:27 Hospitalization Ordered Notes: Hospitalization Status: Observation [facility] Provider: Checo Miner [facility] Location: Telemetry/MedSurg (observation) [facility] Condition: Stable [facility] Problem: new [facility] Symptoms: are unchanged [facility] Bed/Room Type: Standard [facility] Room Assignment: 413(03/23/25 17:20) iw Diagnosis - Chest pain, unspecified [facility] Discharge Instructions: - Discharge Summary Sheet ll1 Forms: - SBAR form ll1 - Medication Reconciliation Form [facility] - Leadership Thank You Letter [facility] Signatures: Dispatcher [employer] Shelbie Casillas RN RN Pablo Mo RN RN bp Rosillo, Jose, MD MD [facility] Earnest Lerma RN ll1 Corrections: (The following items were deleted from the chart) 11: 11:57 BASIC METABOLIC PANEL+C.LAB.BRZ ordered. EDMS EDMS 11:57 11:57 CBC+H.LAB.BRZ ordered. EDMS EDMS 11:57 11:57 D-DIMER+COAG.LAB.BRZ ordered. EDMS EDMS 11:57 11:57 HEPATIC FUNCTION+C.LAB.BRZ ordered. EDMS EDMS 11:57 11:57 MAGNESIUM+C.LAB.BRZ ordered. EDMS EDMS 11:57 11:57 PROBNP+C.LAB.BRZ ordered. EDMS EDMS 11:57 11:57 Troponin High Sensitivity+C.LAB.BRZ ordered. EDMS EDMS 1157 11:57 Chest Single View+RAD.RAD.BRZ ordered. EDMS EDMS 17:20 15:27 jr11 iw
--- NOTE | 2025-03-23 15:27 | ER ---
Nurse's Notes [facility] Name: Yobany Harris Jr Age: 74 yrs Sex: Male : 1950 Arrival Date: 03/23/2025 Time: 11:47 Bed 8 Private MD: Diagnosis: Chest pain, unspecified Presentation: 03/23 12:00 Chief complaint: Patient states: CP FOR SEVERAL DAYS, NOW RESOLVED. ABNORMAL EKG AT bp PCP, DR DEAL, AND REFERRED TO ER. Coronavirus screen: At this time, the client does not indicate any symptoms associated with coronavirus-19. Ebola Screen: No symptoms or risks identified at this time. Initial Sepsis Screen: Does the patient meet any 2 criteria? No. Patient's initial sepsis screen is negative. Does the patient have a suspected source of infection? No. Patient's initial sepsis screen is negative. Risk Assessment: Do you want to hurt yourself or someone else? Patient reports no desire to harm self or others. Onset of symptoms is unknown. 12:00 Method Of Arrival: Ambulatory bp 12:00 Acuity: BILL 3 bp Triage Assessment: 12:01 General: Appears in no apparent distress. Behavior is calm, cooperative, appropriate bp for age. Pain: Denies pain. EENT: No deficits noted. Neuro: No deficits noted. Cardiovascular: Rhythm is sinus bradycardia. Respiratory: No deficits noted. GI: No signs and/or symptoms were reported involving the gastrointestinal system. : No signs and/or symptoms were reported regarding the genitourinary system. Derm: No deficits noted. Musculoskeletal: No deficits noted. Historical: - Allergies: 12:01 Flexeril; bp - PMHx: 12:01 CAD; CVA; Hyperlipidemia; Hypertension; bp - Immunization history:: Adult Immunizations up to date. - Infectious Disease History:: Denies. - Social history:: Smoking status: Patient denies any tobacco usage or history of. Screenin:31 [facility] ED Fall Risk Assessment (Adult) History of falling in the last 3 months, ll1 including since admission No falls in past 3 months (0 pts) Confusion or Disorientation No (0 pts) Intoxicated or Sedated No (0 pts) Impaired Gait No (0 pts) Mobility Assist Device Used No (0 pt) Altered Elimination No (0 pt) Score/Fall Risk Level 0 - 2 = Low Risk Maintained a safe environment, Hourly rounding (assess needs \T\ fall precautionary measures) done. Abuse screen: Denies threats or abuse. Nutritional screening: No deficits noted. Tuberculosis screening: No symptoms or risk factors identified. Assessment: 12:45 Reassessment: No changes from previously documented assessment. Patient and/or family ll1 updated on plan of care and expected duration. Pain level reassessed. Patient is alert, oriented x 3, equal unlabored respirations, skin warm/dry/pink. 13:28 Reassessment: No changes from previously documented assessment. Patient and/or family ll1 updated on plan of care and expected duration. Pain level reassessed. Patient is alert, oriented x 3, equal unlabored respirations, skin warm/dry/pink. Patient states feeling better. 15:45 Reassessment: No changes from previously documented assessment. Patient and/or family ll1 updated on plan of care and expected duration. Pain level reassessed. 16:06 Reassessment: reports dysuria and hematuria. Dr. Marcano informed. ll1 17:00 Reassessment: Patient is alert, oriented x 3, equal unlabored respirations, skin aa5 warm/dry/pink. Patient denies pain at this time. 18:00 Reassessment: Patient is alert, oriented x 3, equal unlabored respirations, skin aa5 warm/dry/pink. Patient denies pain at this time. Vital Signs: 12:00 BP 155 / 71; Pulse 57; Resp 16; Temp 97.3; Pulse Ox 97% ; Weight 111.58 kg; Height 5 bp ft. 11 in. ; 13:28 BP 128 / 66; Pulse 53; Resp 17; Pulse Ox 95% on R/A; Pain 0/10; ll1 14:30 BP 137 / 65; Pulse 52; Resp 16; Pulse Ox 95% on R/A; ll1 15:32 BP 168 / 99; Pulse 65; Resp 17; Pulse Ox 98% ; ll1 16:07 BP 133 / 60; Pulse 58; Resp 17; Pulse Ox 100% on R/A; ll1 12:00 Body Mass Index 34.31 (111.58 kg, 180.34 cm) bp 13:28 Pain Scale: Adult ll1 ED Course: 11:53 Patient arrived in ED. gl 11:56 Rashi Marcano MD is Attending Physician. jr11 12:01 Triage completed. bp 12:01 Arm band placed on. bp 12:30 Patient placed in an exam room, on a stretcher. ll1 12:35 Provided Education on: ER procedures and process. ll1 12:39 Earnest Lerma, RN is Primary Nurse. ll1 12:40 Initial lab(s) drawn, by me, sent to lab. Inserted saline lock: 20 gauge in right nh2 antecubital area, using aseptic technique. Blood collected. Flushed with 10 mL NS. 13:39 XRAY Chest (1 view) In Process Unspecified. EDMS 14:31 Patient has correct armband on for positive identification. Bed in low position. Client ll1 placed on continuous cardiac and pulse oximetry monitoring. NIBP monitoring applied. hospital monitor on. 14:31 No provider procedures requiring assistance completed. Patient admitted, IV remains in ll1 place. 15:27 Checo Miner is Hospitalizing Provider. jr11 16:08 UA Rfx Kali Cult if indicated Sent. ll1 16:13 UA Rfx Kali Cult if indicated Sent. ll1 Administered Medications: 12:40 Not Given (taken [employer]): aspirinchewable tablet 324 mg PO once; 81 mg tablets x 4 ll1 Medication: 14:32 VIS not applicable for this client. ll1 Outcome: 14:32 Condition: stable ll1 14:32 Instructed on the need for admit, 15:27 Decision to Hospitalize by Provider. jr11 16:07 Admitted to Med/surg ll1 18:00 Admitted to Tele accompanied by nurse, via wheelchair, room 413, with chart, aa5 18:00 Condition: stable 18:00 Instructed on the need for admit, Demonstrated understanding of instructions, 18:05 Patient left the ED. iw Signatures: Dispatcher [employer] EDFL Shelbie Cummings RN RN iw Kandi Ramirez RN RN aa5 Pablo Mo RN RN bp Earnest Lerma, RN RN ll1 Rashi Marcano MD MD jr11 Reji Hernandez Jr, RN RN nh2 Batool Morse, Reg Reg gl
[2025-03-23 16:46] LABS: Sqamous Epithelial <5 /HPF (None Seen); Urine Crystals Unidentified Few /HPF (None Seen); Urine Culture Reflex Order NOT NEEDED; Urine Microscopic Reflex YN ORDER UMIC; Urine Yeast (Budding) Few /HPF (None Seen)
[2025-03-23] MEDS ORDERED: ACETAMINOPHEN 325 MG TABLET PO PRN (17:05)
[2025-03-23] MEDS ORDERED: MORPHINE 2 MG/ML SYR IV PRN (17:05)
--- NOTE | 2025-03-23 17:12 | P.CNS ---
Date of Consult: 03/23/25 Chief Complaint: Chest pain History of Present Illness: Patient with PMH of CAD s/p CABG x2 (most likely RIVERA and MARGRET). done at [facility] by Dr. Calle, HTN, HLD, presented with coupel of episodes of chest pain over the last few weeks, last one was yesterday, left sided sharp, resolved today, no radiation, no other symptoms. Allergies cyclobenzaprine HCl [From Flexeril] Adverse Reaction (Verified 08/29/19 14:33) stomach problems Home medications list reviewed: Yes Home Medications: Aspirin [Aspirin EC 325 MG] 325 mg PO DAILY 12/12/16 Atorvastatin Calcium [Lipitor*] 10 mg PO DAILY 12/12/16 gemfibroziL [Lopid*] 600 mg PO DAILY 12/12/16 Valsartan [Diovan] 160 mg PO [id number] 11/03/18 Sulfamethoxazole/Trimethoprim [Bactrim Ds Tablet] 1 each PO BID #14 tablet 08/30/19 Tamsulosin [Flomax] 0.4 mg PO BEDTIME #5 cap 08/30/19 - Past Medical/Surgical History Diabetic: No -: BPH -: CVA 2011 -: HTN -: HYPERLIPIDEMIA -: EPIPLOIC APPENDAGITIS -: BACK SX. -: TURP -: LEFT CARPAL TUNNEL - Family History Father Medical History: GI disease Mother Medical History: Liver disease Brother Medical History: Diabetes, Cancer Notes: prostate cancer Sister Medical History: Cancer, Kidney disease Notes: brain CA,on dialysis - Social History Alcohol use: No CD- Drugs: No Caffeine use: No Review of Systems 10-point ROS is otherwise unremarkable Physical Examination General: Alert, In no apparent distress HEENT: Atraumatic, PERRLA, Mucous membr. moist/pink, EOMI, Sclerae nonicteric Neck: Supple, 2+ carotid pulse no bruit, No LAD, Without JVD or thyroid abnormality Respiratory: Clear to auscultation bilaterally, Normal air movement Cardiovascular: Regular rate/rhythm, Normal S1 S2 Gastrointestinal: Normal bowel sounds, No tenderness Musculoskeletal: No tenderness Integumentary: No rashes Neurological: Normal gait, Normal speech, Normal tone, Normal affect Lymphatics: No axilla or inguinal lymphadenopathy Laboratory Data (last 24 hrs) 03/23/25 03/23/25 12:43 12:43 WBC 9.20 Hgb 15.9 Hct 46.3 Plt Count 335 Sodium 141 Potassium 3.8 BUN 29 H Creatinine 1.28 Glucose 115 H Magnesium 2.4 Total Bilirubin 0.6 AST 54 H ALT 48 Alkaline Phosphatase 83 - Problems (1) CAD (coronary artery disease) of artery bypass graft Current Visit: Yes Status: Acute Plan: Patient with bypass x2 (most likely RIVERA and MARGRET) back on 11/2023 patient is chest pain free now first set of troponin is begative. 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
--- NOTE | 2025-03-23 17:15 | P.HP ---
Certification for Inpatient Patient admitted to: Observation With expected LOS: <2 Midnights Patient will require the following post-hospital care: None Practitioner: I am a practitioner with admitting privileges, knowledge of patient current condition, hospital course, and medical plan of care. Services: Services provided to patient in accordance with Admission requirements found in Title 42 Section 412.3 of the Code of Federal Regulations <Alyssa Soto - Last Filed: 03/23/25 17:43> Patient History Date of Service: 03/23/25 Reason for admission: Chest pain R/O [place] History of Present Illness: Yobany Harris is a 74 year old male with PMhx CAD s/p 2 vessel bypass, HTN, HLD, CVA, who presents to the ED with sternal shooting and tight chest pain that started 2 days ago. He reports going to his PCP for a regular visit when his EKG was seen to be abnormal. Evaluation in the ED, EKG showing lateral ST depression and troponin 29.5. Currently, he denies chest pain, and believes he strained himself during physical therapy for his knee but the EKG is concerning. chest x-ray "Mild interstitial pulmonary edema. The heart is upper limit of normal in size. No displaced fractures identified. Sternotomy wires" Yobany will be admitted to hospitalist service for further evaluation and treatment, Dr. Roman consulted. - Past Medical/Surgical History Diabetic: No -: BPH -: CVA 2011 -: HTN -: HYPERLIPIDEMIA -: EPIPLOIC APPENDAGITIS -: BACK SX. -: TURP -: LEFT CARPAL TUNNEL - Family History Father -: GI disease Mother -: Liver disease Brother -: Diabetes, Cancer Notes: prostate cancer Sister -: Cancer, Kidney disease Notes: brain CA,on dialysis - Social History Alcohol use: No CD- Drugs: No Caffeine use: No <Alyssa Soto - Last Filed: 03/23/25 17:43> Date of Service: 03/24/25 <Tremaine Winn - Last Filed: 03/24/25 06:34> Allergies No Known Allergies Allergy (Verified 03/23/25 18:28) Home Medications: Aspirin [Aspirin EC 325 MG] 325 mg PO DAILY 12/12/16 Buspirone HCl [Buspar] 5 mg PO BID 03/23/25 Fenofibrate [Tricor] 145 mg PO DAILY 03/23/25 Montelukast Sodium 10 mg PO DAILY 03/23/25 NIFEdipine [Nifedipine ER] 60 mg PO DAILY 03/23/25 Rosuvastatin Calcium 40 mg PO BEDTIME 03/23/25 carvediloL [Coreg] 12.5 mg PO BID 03/23/25 Review of Systems Other: per HPI <Alyssa Soto - Last Filed: 03/23/25 17:43> Physical Examination - Studies Laboratory Data (last 24 hrs) 03/23/25 03/23/25 12:43 12:43 WBC 9.20 Hgb 15.9 Hct 46.3 Plt Count 335 Sodium 141 Potassium 3.8 BUN 29 H Creatinine 1.28 Glucose 115 H Magnesium 2.4 Total Bilirubin 0.6 AST 54 H ALT 48 Alkaline Phosphatase 83 <Alyssa Soto - Last Filed: 03/23/25 17:43> - Studies Laboratory Data (last 24 hrs) 03/23/25 03/23/25 12:43 12:43 WBC 9.20 Hgb 15.9 Hct 46.3 Plt Count 335 Sodium 141 Potassium 3.8 BUN 29 H Creatinine 1.28 Glucose 115 H Magnesium 2.4 Total Bilirubin 0.6 AST 54 H ALT 48 Alkaline Phosphatase 83 <Tremaine Winn - Last Filed: 03/24/25 06:34> Assessment and Plan - Plan Assessment and Plan Chest Pain r/o [place] CAD s/p 2 vessel CABG - EKG: lateral ST deppression - Serial troponin pending - chest x-ray "Mild interstitial pulmonary edema. The heart is upper limit of normal in size. No displaced fractures identified. Sternotomy wires" - Consult Cardiology - recommends trending troponin, if negative then follow up with cardiology outpatient - S/P aspirin 324 mg PO x 1 in ED - Start daily baby aspirin and statin - Symptom control with PRN acetaminophen, nitroglycerin, morphine -continuous telemetry -TSH/FreeT4, A1C, lipid panel pending HTN HLD CVA - Continue home medications as DVT PPx Full code LOS 24-hour OBS Discharge Plan: Home Plan to discharge in: 24 Hours - Advance Directives Does patient have a Living Will: No Does patient have a Durable POA for Healthcare: No Time Spent Managing Pts Care (In Minutes): 55 <Alyssa Soto - Last Filed: 03/23/25 17:43> Physician Review: Patient Assessed, Agree with Above Assessment and Plan <Tremaine Winn - Last Filed: 03/24/25 06:34>
[2025-03-23 18:20] VITALS: BMI 34.2
[2025-03-23] MEDS: ATORVASTATIN 40 MG TAB PO SCH (20:00)
[2025-03-24 04:35] LABS: Absolute Lymphocytes (CBC) 2.9 K/uL (0.7-4.9); Hematocrit 41.8 % (39.6-49.0); Hemoglobin 14.5 g/dL (13.6-17.9); MCH 30.2 pg (27.0-35.0); MCHC 34.8 g/dL (32.0-36.0); MCV 86.8 fL (80-100); MPV 8.0 fL (7.6-11.3); Nucleated RBC Absolute Count 0.0 (0-0); Nucleated Red Blood Cells % 0.1 % (0-0); RBC Red Blood Cell Count 4.82 M/uL (4.33-5.43); White Blood Count 10.20 thou/uL (4.3-10.9)
[2025-03-24 05:17] LABS: Anion Gap 8.6 mEq/L (5.0-15.0); BUN Blood Urea Nitrogen 25.0 mg/dL (7-18); Glucose Level 116.0 mg/dL (74-106); HDL Cholesterol 37.0 mg/dL (40-60); LDL Cholesterol, Calculated 28.0 mg/dL (<130); LDL Cholesterol,Calc NonReport 28.0; Magnesium 2.1 mg/dL (1.6-2.4); Potassium 3.6 mEq/L (3.5-5.1); Thyroid Stimulating Hormone 3.71 uIU/mL (0.358-3.740)
[2025-03-24] MEDS: ASPIRIN EC 81 MG TAB PO SCH (08:07)
[2025-03-24 08:17] VITALS: BP 139/56; TEMP 98.2
[2025-03-24 09:14] VITALS: O2SAT 94
--- NOTE | 2025-03-24 10:04 | P.DS ---
Admission Date: 03/23/25 Discharge Date: 03/25/25 Reason for Admission: Chest pain R/O [place] Brief History of Present Illness: Diagnosis Chest Pain r/o [place] CAD s/p 2 vessel CABG HTN HLD CVA HPI 03/23/25 Yobany Harris is a 74 year old male with PMhx CAD s/p 2 vessel bypass, HTN, HLD, CVA, who presents to the ED with sternal shooting and tight chest pain that started 2 days ago. He reports going to his PCP for a regular visit when his EKG was seen to be abnormal. Evaluation in the ED, EKG showing lateral ST depression and troponin 29.5. Currently, he denies chest pain, and believes he strained himself during physical therapy for his knee but the EKG is concerning. chest x-ray "Mild interstitial pulmonary edema. The heart is upper limit of normal in size. No displaced fractures identified. Sternotomy wires" Yobany will be admitted to hospitalist service for further evaluation and treatment, Dr. Roman consulted. Hospital Course: Patient was admitted for abnormal EKG found at his PCPs office. During this admission his troponins remain negative EKG slightly abnormal, cardiology consulted and monitored overnight while on continuous telemetry with no acute events noted. 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 He was seen on morning rounds, no acute distress, no chest pain noted, ambulating independently, and tolerating p.o. diet. General: AAOx3, NAD HEENT: MMM Head/Neck: Normocephalic, atraumatic, neck supple Respiratory: symmetrical chest expansion, no accessory muscles used, lungs clear on ausultation Cardiac: NSR, S1-S2 noted Extremities: peripheral pulses 2+ Abdominal: soft and benign on palpation, NT/ND Neurological: clear speech, appropriate Psych: normal mood and affect, Judgement appropriate <Alyssa Soto - Last Filed: 03/25/25 07:34> Admission Date: 03/23/25 Discharge Date: 03/26/25 <Tremaine Winn - Last Filed: 03/26/25 06:32> Disposition: ROUTINE DISCHARGE Discharge Condition: GOOD Vital Signs/Physical Exam: Temp Pulse Resp BP Pulse Ox 98.2 F 54 18 139/56 L 95 03/24/25 08:00 03/24/25 08:00 03/24/25 08:00 03/24/25 08:00 03/24/25 08:00 Laboratory Data at Discharge: WBC 10.20 thou/uL (4.3-10.9) 03/24/25 03:58 Hgb 14.5 g/dL (13.6-17.9) D 03/24/25 03:58 Hct 41.8 % (39.6-49.0) 03/24/25 03:58 Plt Count 308 thou/uL (152-406) 03/24/25 03:58 Sodium 140 mEq/L (136-145) 03/24/25 03:58 Potassium 3.8 mEq/L (3.5-5.1) 03/24/25 07:22 BUN 25 mg/dL (7-18) H 03/24/25 03:58 Creatinine 1.05 mg/dL (0.70-1.30) 03/24/25 03:58 Glucose 116 mg/dL (74-106) H 03/24/25 03:58 Phosphorus 3.2 mg/dL (2.5-4.9) 03/24/25 03:58 Magnesium 2.1 mg/dL (1.6-2.4) 03/24/25 03:58 Total Bilirubin 0.6 mg/dL (0.2-1.0) 03/23/25 12:43 AST 54 U/L (15-37) H 03/23/25 12:43 ALT 48 U/L (16-61) 03/23/25 12:43 Alkaline Phosphatase 83 U/L (45-117) 03/23/25 12:43 Triglycerides 164 mg/dL (<150) H 03/24/25 03:58 Cholesterol 98 mg/dL (<200) 03/24/25 03:58 HDL Cholesterol 37 mg/dL (40-60) L 03/24/25 03:58 Cholesterol/HDL Ratio 2.65 03/24/25 03:58 <Alyssa Soto - Last Filed: 03/25/25 07:34> Vital Signs/Physical Exam: Temp Pulse Resp BP Pulse Ox 98.2 F 54 18 139/56 L 95 03/24/25 08:00 03/24/25 08:00 03/24/25 08:00 03/24/25 08:00 03/24/25 08:00 Laboratory Data at Discharge: WBC 10.20 thou/uL (4.3-10.9) 03/24/25 03:58 Hgb 14.5 g/dL (13.6-17.9) D 03/24/25 03:58 Hct 41.8 % (39.6-49.0) 03/24/25 03:58 Plt Count 308 thou/uL (152-406) 03/24/25 03:58 Sodium 140 mEq/L (136-145) 03/24/25 03:58 Potassium 3.8 mEq/L (3.5-5.1) 03/24/25 07:22 BUN 25 mg/dL (7-18) H 03/24/25 03:58 Creatinine 1.05 mg/dL (0.70-1.30) 03/24/25 03:58 Glucose 116 mg/dL (74-106) H 03/24/25 03:58 Phosphorus 3.2 mg/dL (2.5-4.9) 03/24/25 03:58 Magnesium 2.1 mg/dL (1.6-2.4) 03/24/25 03:58 Total Bilirubin 0.6 mg/dL (0.2-1.0) 03/23/25 12:43 AST 54 U/L (15-37) H 03/23/25 12:43 ALT 48 U/L (16-61) 03/23/25 12:43 Alkaline Phosphatase 83 U/L (45-117) 03/23/25 12:43 Triglycerides 164 mg/dL (<150) H 03/24/25 03:58 Cholesterol 98 mg/dL (<200) 03/24/25 03:58 HDL Cholesterol 37 mg/dL (40-60) L 03/24/25 03:58 Cholesterol/HDL Ratio 2.65 03/24/25 03:58 <Tremaine Winn - Last Filed: 03/26/25 06:32> Diet: AHA Activity: Fall precautions <Alyssa Soto - Last Filed: 03/25/25 07:34> Physician Review: Patient Assessed, Agree with Above Assessment and Plan <Tremaine Winn - Last Filed: 03/26/25 06:32> Home Medications: Aspirin [Aspirin EC 325 MG] 325 mg PO DAILY 12/12/16 Buspirone HCl [Buspar*] 5 mg PO BID 03/23/25 Fenofibrate [Tricor*] 145 mg PO DAILY 03/23/25 Montelukast Sodium 10 mg PO DAILY 03/23/25 NIFEdipine [Nifedipine ER] 60 mg PO DAILY 03/23/25 Rosuvastatin Calcium 40 mg PO BEDTIME 03/23/25 carvediloL [Coreg*] 12.5 mg PO BID 03/23/25 Physician Discharge Instructions: 1. Please call and schedule a follow-up appointment with your PCP in 3-5 days - Please follow-up with your PCP for medication refills/adjustments 2. Please call and schedule a follow-up appointment with Dr. 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 Please call and schedule follow-up appointment Dr. Malloy for hematuria and management of prostate. 4. Continue heart healthy diet 5. no activity restrictions 6. Return to the ED if symptoms worsen Continue medications as prescribed by your provider. Followup: Jorge Roman MD [ACTIVE - CAN ADMIT] - 1-2 Weeks Shar Obregon MD [Primary Care Provider] - 2-3 Days Flako Malloy [ACTIVE - CAN ADMIT] - 1 Week
--- NOTE | 2025-03-24 11:08 | RAD REPORT ---
EXAMINATION: US Abdomen Exam Complete CLINICAL INDICATION: Male, 74 years, [facility] MAIN Hematuria. TECHNIQUE: Grayscale ultrasonography of the abdomen was performed. COMPARISON: CT abdomen and pelvis 07/24/2023. FINDINGS: LIVER: Increased echogenicity with reduced sonographic penetration and without focal mass. GALLBLADDER: No gallstones, gall bladder wall thickening or pericholecystic fluid. No reported sono graphic Silva's sign. BILE DUCTS: Intrahepatic and extrahepatic bile ducts appear normal. Measured near the magi hepatis , the common bile duct is 0.4 cm RIGHT KIDNEY: Right renal length measurement: 12.0 cm. Normal in echogenicity and size. No calculus, solid mass or hydronephrosis. Cortical 1.8 cm anechoic cyst near the lower pole. LEFT KIDNEY: Left renal length measurement: 13.8 cm. Normal in echogenicity and size. No calculus, s olid mass or hydronephrosis. Upper pole exophytic anechoic 2.2 cm cyst. SPLEEN: Normal in echogenicity, with length of 10.5 cm PANCREAS: The visualized pancreas is normal in size and echogenicity. AORTA AND INFERIOR VENA CAVA: Visualized segments of the aorta and inferior vena cava are normal. ASCITES: None. ADDITIONAL FINDINGS: None. IMPRESSION: Diffuse hepatic steatosis. Bilateral benign-appearing renal cortical cysts
== END 2025-03-24 10:47 | disposition home or self-care (01) ==
LOC: ER 11:47 → ERHOLD 17:05 → 4TH 17:55
PROVIDERS: ADMIT Family Medicine; ATTEND Family Medicine
DX: R07.9 Chest pain, unspecified (principal); I25.10 Atherosclerotic heart disease of native coronary artery without angina pectoris; I10 Essential (primary) hypertension; E78.5 Hyperlipidemia, unspecified; J81.1 Chronic pulmonary edema; Z86.73 Personal history of transient ischemic attack (TIA), and cerebral infarction without residual deficits; Z79.82 Long term (current) use of aspirin; Z95.1 Presence of aortocoronary bypass graft
CPT/HCPCS: 93005; 85025 ×2; 81001; 80048 ×2; 36415; 83735 ×2; 84100; 84132; 80061; 85379; 80076; 84443; 84484 ×3; 84439; 83880; 71045; 76700; 94760 ×2; 99285; 94660; G0378 ×3